=== PATIENT | male | born 1945 | race American Indian/Alaskan Native ===

== ENCOUNTER 2018-12-16 13:07 | Inpatient (IN) | payer MEDICARE, OTHER ==
[2018-12-16] MEDS ORDERED: NACL 0.9% 1000 ML 1,000 ML IV ONE ×2 (13:15→15:37)
[2018-12-16] MEDS ORDERED: ASPIRIN PO ONE (13:15)
--- NOTE | 2018-12-16 13:16 | Emergency Department Report ---
ED Chest Pain HPI - General Stated Complaint: CHEST PAIN Time Seen by Provider: 12/16/18 13:13 Source: patient, EMS Mode of arrival: Stretcher Limitations: No Limitations - History of Present Illness Initial Comments: She is a 73-year-old male that presents emergency room with complaints of chest pain. Patient states his chest pain was a 7 out of 10 and is now resolved since being placed on oxygen. Patient states his chest pain was left chest substernal nonradiating. Patient states the pain is better with rest and worse with exertion. Patient states the chest pain came on with exertion. Patient states he has a past medical history of diabetes, hyponatremia, hypertension, CAD with stent. MD Complaint: chest pain -: Sudden Onset: during exertion Pain Location: substernal, left chest Pain Radiation: none Severity: severe Severity scale (0 -10): 7 Quality: sharp Consistency: now resolved Improves With: rest Worsens With: exertion re: denies: nausea, vomting, diaphoresis, dyspnea, sense of impending doom Other Symptoms: denies: cough, fever, syncope, rash, acid taste in mouth, leg swelling, palpitations, burping Treatments Prior to Arrival: oxygen Aspirin use within the Past 7 Days: (1) Yes - Related Data On Oral Contraceptives: No Home Medications Medication Instructions Recorded Confirmed Last Taken Chlorthalidone [Thalitone] 25 mg PO DAILY 12/16/18 12/16/18 Unknown Insulin Aspart [Novolog] 14 - 16 unit SQ AC 12/16/18 12/16/18 Unknown Insulin Glargine [Lantus] 50 unit SUB-Q QHS 12/16/18 12/16/18 Unknown Losartan [Cozaar] 100 mg PO DAILY 12/16/18 12/16/18 Unknown Metoprolol [Lopressor TAB] 50 mg PO BID 12/16/18 12/16/18 Unknown Metoprolol [Lopressor] 100 mg PO BID 12/16/18 12/16/18 Unknown Multivitamin with Iron [Children's 1 each PO DAILY 12/16/18 12/16/18 Unknown Vitamins with Iron] Oxybutynin Chloride [Ditropan Xl] 20 mg PO DAILY 12/16/18 12/16/18 Unknown amLODIPine [Norvasc] 10 mg PO DAILY 12/16/18 12/16/18 Unknown metFORMIN [Glucophage] 500 mg PO BID 12/16/18 12/16/18 Unknown Allergies Allergy/AdvReac Type Severity Reaction Status Date / Time No Known Allergies Allergy Unverified 12/16/18 13:29 Heart Score - HEART Score History: Highly suspicious EKG: Non-specific Age: > 65 Risk factors: > 3 risk factors or hx of atherosclerotic disease Troponin: < normal limit HEART Score: 7 ED Review of Systems ROS: Stated complaint: CHEST PAIN Other details as noted in HPI Constitutional: denies: chills, fever Eyes: denies: eye pain, eye discharge, vision change ENT: denies: ear pain, throat pain Respiratory: denies: cough, shortness of breath, wheezing Cardiovascular: chest pain. denies: palpitations Endocrine: no symptoms reported Gastrointestinal: denies: abdominal pain, nausea, diarrhea Genitourinary: denies: urgency, dysuria Musculoskeletal: denies: back pain, joint swelling, arthralgia Skin: denies: rash, lesions Neurological: denies: headache, weakness, paresthesias Psychiatric: denies: anxiety, depression Hematological/Lymphatic: denies: easy bleeding, easy bruising ED Past Medical Hx - Past Medical History Previous Medical History?: Yes Hx Hypertension: Yes Hx Heart Attack/AMI: Yes Hx Diabetes: Yes - Surgical History Past Surgical History?: Yes Hx Coronary Stent: Yes - Family History Family history: no significant - Social History Smoking Status: Never Smoker Substance Use Type: None - Medications Home Medications: Home Medications Medication Instructions Recorded Confirmed Last Taken Type Chlorthalidone [Thalitone] 25 mg PO DAILY 12/16/18 12/16/18 Unknown History Insulin Aspart [Novolog] 14 - 16 unit SQ AC 12/16/18 12/16/18 Unknown History Insulin Glargine [Lantus] 50 unit SUB-Q QHS 12/16/18 12/16/18 Unknown History Losartan [Cozaar] 100 mg PO DAILY 12/16/18 12/16/18 Unknown History Metoprolol [Lopressor TAB] 50 mg PO BID 12/16/18 12/16/18 Unknown History Metoprolol [Lopressor] 100 mg PO BID 12/16/18 12/16/18 Unknown History Multivitamin with Iron [Children's 1 each PO DAILY 12/16/18 12/16/18 Unknown History Vitamins with Iron] Oxybutynin Chloride [Ditropan Xl] 20 mg PO DAILY 12/16/18 12/16/18 Unknown History amLODIPine [Norvasc] 10 mg PO DAILY 12/16/18 12/16/18 Unknown History metFORMIN [Glucophage] 500 mg PO BID 12/16/18 12/16/18 Unknown History ED Physical Exam - General Limitations: No Limitations General appearance: alert, in no apparent distress - Head Head exam: Present: atraumatic, normocephalic - Eye Eye exam: Present: normal appearance - ENT ENT exam: Present: mucous membranes moist - Neck Neck exam: Present: normal inspection - Respiratory Respiratory exam: Present: normal lung sounds bilaterally. Absent: respiratory distress - Cardiovascular Cardiovascular Exam: Present: regular rate, normal rhythm. Absent: systolic murmur, diastolic murmur, rubs, gallop - GI/Abdominal GI/Abdominal exam: Present: soft, normal bowel sounds. Absent: distended, tenderness, guarding - Rectal Rectal exam: Present: deferred - Extremities Exam Extremities exam: Present: normal inspection - Back Exam Back exam: Present: normal inspection - Neurological Exam Neurological exam: Present: alert, oriented X3 - Psychiatric Psychiatric exam: Present: normal affect, normal mood - Skin Skin exam: Present: warm, dry, intact, normal color. Absent: rash ED Course Vital Signs 12/16/18 12/16/18 12/16/18 13:23 13:46 13:58 Temperature 99.2 F Pulse Rate 88 74 Respiratory 18 18 23 Rate Blood Pressure 129/63 128/65 Blood Pressure 129/63 [Left] O2 Sat by Pulse 100 100 97 Oximetry 12/16/18 12/16/18 12/16/18 14:00 14:16 14:30 Temperature Pulse Rate 71 70 68 Respiratory 22 22 12 Rate Blood Pressure 128/65 119/64 121/68 Blood Pressure [Left] O2 Sat by Pulse 98 98 96 Oximetry 12/16/18 12/16/18 12/16/18 14:46 15:00 15:16 Temperature Pulse Rate 67 64 64 Respiratory 22 20 17 Rate Blood Pressure 119/68 121/70 125/71 Blood Pressure [Left] O2 Sat by Pulse 91 98 97 Oximetry 12/16/18 12/16/18 12/16/18 15:30 15:46 17:05 Temperature Pulse Rate 66 63 73 Respiratory 14 18 23 Rate Blood Pressure 125/71 133/70 118/76 Blood Pressure [Left] O2 Sat by Pulse 98 97 96 Oximetry 12/16/18 12/16/18 12/16/18 17:10 17:20 17:30 Temperature Pulse Rate 73 72 73 Respiratory 22 25 H 25 H Rate Blood Pressure 118/76 130/79 130/79 Blood Pressure [Left] O2 Sat by Pulse 98 97 99 Oximetry 12/16/18 12/16/18 12/16/18 17:40 17:58 18:00 Temperature Pulse Rate 72 71 72 Respiratory 21 19 22 Rate Blood Pressure 146/75 130/72 150/74 Blood Pressure [Left] O2 Sat by Pulse 97 97 94 Oximetry - Reevaluation(s) Reevaluation #1: I discussed all results with patient. I discussed plan of care outpatient. Patient agrees with plan of care and admission. Patient will be admitted to the hospitalist service. 12/16/18 15:13 - Consultations Consultation #1: Hospitalist consult for admission. Hospitalist to admit patient. Bridge orders placed. 12/16/18 15:45 GADIEL score - Gadiel Score Age > 65: (1) Yes Aspirin use within the Past 7 Days: (1) Yes 3 or more CAD Risk Factors: (1) Yes 2 or more Angina events in past 24 hrs: (0) No Known CAD with more than 50% Stenosis: (0) No Elevated Cardiac Markers: (0) No ST Deviation Greater than 0.5mm: (0) No GADIEL Score: 3 ED Medical Decision Making - Lab Data Result diagrams: 12/16/18 13:12/18/18 04:19 - EKG Data -: EKG Interpreted by Ne EKG shows normal: sinus rhythm, axis, intervals, QRS complexes, ST-T waves Rate: normal - Radiology Data Radiology results: report reviewed, image reviewed CTA CHEST WITH IV CONTRAST INDICATION: Chest pain, hypoxia. TECHNIQUE: Axial CT images were obtained through the chest after injection of 60 mL Omnipaque 350 IV contrast. 3 plane MIP reconstructions were produced. All CT scans at this location are performed using CT dose reduction for ALARA by means of automated exposure control. COMPARISON: One view of the chest from earlier today. FINDINGS: PULMONARY ARTERIES: The pulmonary arteries are well-opacified without suspicious filling defects concerning for thromboemboli. AORTA AND ARTERIES: The aorta and great vessels are patent and normal in caliber without significant atherosclerosis. There is severe generalized coronary atherosclerosis. MEDIASTINUM: No significant abnormality of the thyroid gland. The trachea and main bronchi are patent and normal in caliber. No mass or lymphadenopathy is seen. The heart is mildly enlarged without a pericardial effusion. LUNGS: There is a consolidation along the right upper and lower lobes and minimally along the right middle lobe are consistent with pneumonia. The left lung is clear. No pneumothorax or pleural effusion is seen. ADDITIONAL FINDINGS: None. UPPER ABDOMEN: No acute findings. BONES: No acute abnormality. IMPRESSION: 1. No CT evidence for pulmonary embolism. 2. Multifocal right pneumonia. 3. Additional findings as above. - Medical Decision Making Patient is a 73-year-old male that presents emergency room with complaints of chest pain hypoxic. Patient found to have right-sided pneumonia. Patient's EKG negative for acute findings but shows chronic changes. Patient has a history of CAD. Patient admitted to the hospital service. Patient given antibiotics. - Differential Diagnosis chest pain. ACS. Pneumonia. Critical Care Time: Yes Critical care attestation.: If time is entered above; I have spent that time in minutes in the direct care of this critically ill patient, excluding procedure time. Critical Care Time: 45 minutes ED Disposition Clinical Impression: Hypoxia, Renal insufficiency Chest pain Qualifiers: Chest pain type: unspecified Qualified Code(s): R07.9 - Chest pain, unspecified Pneumonia Qualifiers: Pneumonia type: due to unspecified organism Laterality: unspecified laterality Lung location: unspecified part of lung Qualified Code(s): J18.9 - Pneumonia, unspecified organism Disposition: OP ADMIT IP TO THIS HOSP Is pt being admited?: Yes Does the pt Need Aspirin: No Condition: Critical Time of Disposition: 15:21
[2018-12-16 13:51] LABS: Hematocrit 49.7 % (35.5-45.6); Hemoglobin 16.1 gm/dl (11.8-15.2); Mean Corpuscular HGB Conc 32 % (32-34); Mean Corpuscular Volume 89 fl (84-94); Platelet Count 202 K/mm3 (140-440); Red Blood Count 5.61 M/mm3 (3.65-5.03); Red Cell Distribution Width 14.5 % (13.2-15.2)
[2018-12-16 13:59] LABS: Albumin 3.8 g/dL (3.9-5); Calcium 10.6 mg/dL (8.4-10.2)
[2018-12-16 14:36] LABS: Basophils % (Manual) 0 % (0.0-1.8); Eosinophils % (Manual) 0 % (0.0-4.3); Monocytes % (Manual) 0 % (0.0-7.3); Total Cells Counted 100
[2018-12-16 14:37] LABS: Anisocytosis Few; Platelet Estimate Consistent w Auto
--- NOTE | 2018-12-16 15:06 | XRay Report ---
CHEST 1 VIEW INDICATION: Chest Pain. COMPARISON: None FINDINGS: Support devices: None. Heart: Borderline heart size Lungs/Pleura: Patchy infiltrate is identified in the right upper lobe and right lower lobe concerning for pneumonia. The left lung is clear. No large pleural effusion or pneumothorax. Additional findings: None. IMPRESSION: Right lung pneumonia. Borderline cardiomegaly. Signer Name: Wilfred Rossi Jr, MD Signed: 12/16/2018 3:02 PM Workstation Name: [id number]
[2018-12-16] MEDS ORDERED: MAXIPIME/NS 2 GM/100 ML 2 GM/100 ML BAG IV ONE (15:22)
--- NOTE | 2018-12-16 17:00 | Cat Scan Report ---
CTA CHEST WITH IV CONTRAST INDICATION: Chest pain, hypoxia. TECHNIQUE: Axial CT images were obtained through the chest after injection of 60 mL Omnipaque 350 IV contrast. 3 plane MIP reconstructions were produced. All CT scans at this location are performed using CT dose r eduction for ALARA by means of automated exposure control. COMPARISON: One view of the chest from earlier today. FINDINGS: PULMONARY ARTERIES: The pulmonary arteries are well-opacified without suspicious filling defects conc erning for thromboemboli. AORTA AND ARTERIES: The aorta and great vessels are patent and normal in caliber without significant atherosclerosis. There is severe generalized coronary atherosclerosis. MEDIASTINUM: No significant abnormality of the thyroid gland. The trachea and main bronchi are patent and normal in caliber. No mass or lymphadenopathy is seen. The heart is mildly enlarged without a pe ricardial effusion. LUNGS: There is a consolidation along the right upper and lower lobes and minimally along the right m iddle lobe are consistent with pneumonia. The left lung is clear. No pneumothorax or pleural effusion is seen. ADDITIONAL FINDINGS: None. UPPER ABDOMEN: No acute findings. BONES: No acute abnormality. IMPRESSION: 1. No CT evidence for pulmonary embolism. 2. Multifocal right pneumonia. 3. Additional findings as above. Signer Name: Den Presotn MD Signed: 12/16/2018 4:55 PM Workstation Name: [id number]
--- NOTE | 2018-12-16 18:10 | History and Physical Report ---
History of Present Illness Date of examination: 12/16/18 Date of admission: 12/16/18 15:35 Chief complaint: Chest pain since AM History of present illness: 73-year-old male with IDDM HTN and OAB presents to emergency room with complaints of chest pain. Patient states his chest pain was a 7 out of 10 and is now resolved since being placed on oxygen. Patient states his chest pain was left chest substernal and nonradiating. Patient states the pain is better with rest and worse with exertion. Patient states the chest pain came on with exertion. Patient states he has a past medical history of diabetes, hypertension and CAD with stent. Past Medical History Hypertension: Yes Heart Attack/AMI: Yes Diabetes: Yes Surgical History Past Surgical History?: Yes Hx Coronary Stent: Yes Family History Family history: no significant Social History Smoking Status: Never Smoker Substance Use Type: None Review of Systems ROS: Stated complaint: CHEST PAIN Other details as noted in HPI Constitutional: denies: chills, fever Eyes: denies: eye pain, eye discharge, vision change ENT: denies: ear pain, throat pain Respiratory: denies: cough, shortness of breath, wheezing Cardiovascular: chest pain. denies: palpitations Endocrine: no symptoms reported Gastrointestinal: denies: abdominal pain, nausea, diarrhea Genitourinary: denies: urgency, dysuria Musculoskeletal: denies: back pain, joint swelling, arthralgia Skin: denies: rash, lesions Neurological: denies: headache, weakness, paresthesias Psychiatric: denies: anxiety, depression Hematological/Lymphatic: denies: easy bleeding, easy bruising - Medications Home Medications: Home Medications Medication Instructions Recorded Confirmed Last Taken Type Chlorthalidone [Thalitone] 25 mg PO DAILY 12/16/18 12/16/18 Unknown History Insulin Aspart [Novolog] 14 - 16 unit SQ AC 12/16/18 12/16/18 Unknown History Insulin Glargine [Lantus] 50 unit SUB-Q QHS 12/16/18 12/16/18 Unknown History Losartan [Cozaar] 100 mg PO DAILY 12/16/18 12/16/18 Unknown History Metoprolol [Lopressor TAB] 50 mg PO BID 12/16/18 12/16/18 Unknown History Metoprolol [Lopressor] 100 mg PO BID 12/16/18 12/16/18 Unknown History Multivitamin with Iron [Children's 1 each PO DAILY 12/16/18 12/16/18 Unknown History Vitamins with Iron] Oxybutynin Chloride [Ditropan Xl] 20 mg PO DAILY 12/16/18 12/16/18 Unknown History amLODIPine [Norvasc] 10 mg PO DAILY 12/16/18 12/16/18 Unknown History metFORMIN [Glucophage] 500 mg PO BID 12/16/18 12/16/18 Unknown History Medications and Allergies Allergies Allergy/AdvReac Type Severity Reaction Status Date / Time No Known Allergies Allergy Unverified 12/16/18 13:29 Home Medications Medication Instructions Recorded Confirmed Last Taken Type Chlorthalidone [Thalitone] 25 mg PO DAILY 12/16/18 12/16/18 Unknown History Insulin Aspart [Novolog] 14 - 16 unit SQ AC 12/16/18 12/16/18 Unknown History Insulin Glargine [Lantus] 50 unit SUB-Q QHS 12/16/18 12/16/18 Unknown History Losartan [Cozaar] 100 mg PO DAILY 12/16/18 12/16/18 Unknown History Metoprolol [Lopressor TAB] 50 mg PO BID 12/16/18 12/16/18 Unknown History Metoprolol [Lopressor] 100 mg PO BID 12/16/18 12/16/18 Unknown History Multivitamin with Iron [Children's 1 each PO DAILY 12/16/18 12/16/18 Unknown History Vitamins with Iron] Oxybutynin Chloride [Ditropan Xl] 20 mg PO DAILY 12/16/18 12/16/18 Unknown History amLODIPine [Norvasc] 10 mg PO DAILY 12/16/18 12/16/18 Unknown History metFORMIN [Glucophage] 500 mg PO BID 12/16/18 12/16/18 Unknown History Active Meds: Active Medications Sodium Chloride (Nacl 0.9% 1000 Ml) 1,000 mls @ 250 mls/hr IV ONCE ONE Stop: 12/16/18 19:36 Last Admin: 12/16/18 16:28 Dose: 250 mls/hr Documented by: Exam - Constitutional Vitals: Temp Pulse Resp BP Pulse Ox 99.2 F 88 18 129/63 100 12/16/18 13:23 12/16/18 13:23 12/16/18 13:46 12/16/18 13:23 12/16/18 13:46 General appearance: Present: no acute distress, well-nourished - EENT Eyes: Present: PERRL ENT: hearing intact, clear oral mucosa - Neck Neck: Present: supple, normal ROM - Respiratory Respiratory effort: normal Respiratory: bilateral: CTA - Cardiovascular Heart rate: 78 Rhythm: regular Heart Sounds: Present: S1 & S2. Absent: rub, click - Extremities Extremities: no ischemia, pulses intact, pulses symmetrical, No edema Peripheral Pulses: within normal limits - Abdominal General gastrointestinal: Present: soft, non-tender, non-distended, normal bowel sounds Male genitourinary: Present: normal - Rectal Rectal Exam: deferred - Integumentary Integumentary: Present: clear, warm, dry - Musculoskeletal Musculoskeletal: gait normal, strength equal bilaterally - Psychiatric Psychiatric: appropriate mood/affect, intact judgment & insight - Neurologic Neurologic: CNII-XII intact, moves all extremities - Allied Health Allied health notes reviewed: nursing, case management Results - Labs CBC & Chem 7: 12/16/18 13:19 12/16/18 13:19 Labs: Laboratory Last Values WBC 16.0 K/mm3 (4.5-11.0) H 12/16/18 13:19 RBC 5.61 M/mm3 (3.65-5.03) H 12/16/18 13:19 Hgb 16.1 gm/dl (11.8-15.2) H 12/16/18 13:19 Hct 49.7 % (35.5-45.6) H 12/16/18 13:19 MCV 89 fl (84-94) 12/16/18 13:19 MCH 29 pg (28-32) 12/16/18 13:19 MCHC 32 % (32-34) 12/16/18 13:19 RDW 14.5 % (13.2-15.2) 12/16/18 13:19 Plt Count 202 K/mm3 (140-440) 12/16/18 13:19 Add Manual Diff Complete 12/16/18 13:19 Total Counted 100 12/16/18 13:19 Seg Neutrophils % Shoe Repair Cobbler 12/16/18 13:19 Seg Neuts % (Manual) 98.0 % (40.0-70.0) H 12/16/18 13:19 0 % 09/13/19 13:19 2.0 % (13.4-35.0) L 12/16/18 13:19 Reactive Lymphs % (Man) 0 % 12/16/18 13:19 0 % (0.0-7.3) 12/16/18 13:19 0 % (0.0-4.3) 12/16/18 13:19 0 % (0.0-1.8) 12/16/18 13:19 0 % 12/16/18 13:19 0 % 12/16/18 13:19 0 % 12/16/18 13:19 0 % 12/16/18 13:19 Nucleated RBC % Not Reportable 12/16/18 13:19 Seg Neutrophils # Man 15.7 K/mm3 (1.8-7.7) H 12/16/18 13:19 Band Neutrophils # 0.0 K/mm3 12/16/18 13:19 0.3 K/mm3 (1.2-5.4) L 12/16/18 13:19 Abs React Lymphs (Man) 0.0 K/mm3 12/16/18 13:19 0.0 K/mm3 (0.0-0.8) 12/16/18 13:19 0.0 K/mm3 (0.0-0.4) 12/16/18 13:19 0.0 K/mm3 (0.0-0.1) 12/16/18 13:19 0.0 K/mm3 12/16/18 13:19 0.0 K/mm3 12/16/18 13:19 0.0 K/mm3 12/16/18 13:19 Blast Cells # 0.0 K/mm3 12/16/18 13:19 WBC Morphology Not Reportable 12/16/18 13:19 Hypersegmented Neuts Not Reportable 12/16/18 13:19 Hyposegmented Neuts Not Reportable 12/16/18 13:19 Hypogranular Neuts Not Reportable 12/16/18 13:19 Not Reportable 12/16/18 13:19 Not Reportable 12/16/18 13:19 Not Reportable 12/16/18 13:19 Not Reportable 12/16/18 13:19 Not Reportable 12/16/18 13:19 Not Reportable 12/16/18 13:19 Consistent w auto 12/16/18 13:19 Not Reportable 12/16/18 13:19 Plt Clumps, EDTA Not Reportable 12/16/18 13:19 Not Reportable 12/16/18 13:19 Not Reportable 12/16/18 13:19 Not Reportable 12/16/18 13:19 Plt Morphology Comment Not Reportable 12/16/18 13:19 RBC Morphology Not Reportable 12/16/18 13:19 Dimorphic RBCs Not Reportable 12/16/18 13:19 Not Reportable 12/16/18 13:19 Not Reportable 12/16/18 13:19 Not Reportable 12/16/18 13:19 Few 12/16/18 13:19 Not Reportable 12/16/18 13:19 Not Reportable 12/16/18 13:19 Not Reportable 12/16/18 13:19 Not Reportable 12/16/18 13:19 Not Reportable 12/16/18 13:19 Not Reportable 12/16/18 13:19 Not Reportable 12/16/18 13:19 Not Reportable 12/16/18 13:19 Not Reportable 12/16/18 13:19 Not Reportable 12/16/18 13:19 Not Reportable 12/16/18 13:19 Not Reportable 12/16/18 13:19 Not Reportable 12/16/18 13:19 Not Reportable 12/16/18 13:19 Not Reportable 12/16/18 13:19 Acanthocytes (Spur) Not Reportable 12/16/18 13:19 Rouleaux Not Reportable 12/16/18 13:19 Not Reportable 12/16/18 13:19 Not Reportable 12/16/18 13:19 Not Reportable 12/16/18 13:19 Not Reportable 12/16/18 13:19 Hem Pathologist Commnt No 12/16/18 13:19 Sodium 138 mmol/L (137-145) 12/16/18 13:19 Potassium 3.7 mmol/L (3.6-5.0) 12/16/18 13:19 Chloride 98.9 mmol/L (98-107) 12/16/18 13:19 Carbon Dioxide 24 mmol/L (22-30) 12/16/18 13:19 19 mmol/L 12/16/18 13:19 BUN 24 mg/dL (9-20) H 12/16/18 13:19 1.6 mg/dL (0.8-1.5) H 12/16/18 13:19 Estimated GFR 51 ml/min 12/16/18 13:19 15 % 12/16/18 13:19 Glucose 287 mg/dL (75-100) H 12/16/18 13:19 Calcium 10.6 mg/dL (8.4-10.2) H 12/16/18 13:19 0.50 mg/dL (0.1-1.2) 12/16/18 13:19 AST 16 units/L (5-40) 12/16/18 13: ALT 13 units/L (7-56) 12/16/18 13:19 89 units/L (35-129) 12/16/18 13: 0.011 ng/mL (0.00-0.029) 12/16/18 13: 6.7 g/dL (6.3-8.2) 12/16/18 13:19 3.8 g/dL (3.9-5) L 12/16/18 13:19 1.3 % 12/16/18 13:19 Short CBC 12/16/18 Range/Units 13:19 WBC 16.0 H (4.5-11.0) K/mm3 Hgb 16.1 H (11.8-15.2) gm/dl Hct 49.7 H (35.5-45.6) % Plt Count 202 (140-440) K/mm3 BMP 12/16/18 13:19 Sodium 138 Potassium 3.7 Chloride 98.9 Carbon Dioxide 24 BUN 24 H Creatinine 1.6 H Glucose 287 H Calcium 10.6 H Cardiac Enzymes 12/16/18 Range/Units 13: Troponin T 0.011 (0.00-0.029) ng/mL Liver Function 12/16/18 Range/Units 13:19 Total Bilirubin 0.50 (0.1-1.2) mg/dL AST 16 (5-40) units/L ALT 13 (7-56) units/L Alkaline Phosphatase 89 (35-129) units/L Albumin 3.8 L (3.9-5) g/dL Urine 12/16/18 Range/Units Unknown Urine Color Yellow (Yellow) Urine pH 6.0 (5.0-7.0) Ur Specific [place] 1.041 H (1.003-1.030) Urine Protein >500 (Negative) mg/dL Urine Glucose (UA) Neg (Negative) mg/dL - Imaging and Cardiology EKG: report reviewed (NSR 85/min) Imaging and Cardiology: CXR Lungs/Pleura: Patchy infiltrate is identified in the right upper lobe and right lower lobe concerning for pneumonia. The left lung is clear. No large pleural effusion or pneumothorax. Additional findings: None. IMPRESSION: Right lung pneumonia. Borderline cardiomegaly. Chest CTA IMPRESSION: 1. No CT evidence for pulmonary embolism. 2. Multifocal right pneumonia. 3. Additional findings as above. Assessment and Plan Advance Directives: Yes (Full code) VTE prophylaxis?: Chemical Plan of care discussed with patient/family: Yes - Patient Problems (1) CAP (community acquired pneumonia) Current Visit: Yes Status: Acute Qualifiers: Lung location: lower lobe of lung Qualified Code(s): J18.1 - Lobar pneumonia, unspecified organism Plan to address problem: IV Abx and IV fluids for now (2) Chest pain Current Visit: Yes Status: Acute Qualifiers: Chest pain type: unspecified Qualified Code(s): R07.9 - Chest pain, unspecified Plan to address problem: Serial Troponins and Lexiscan in AM (3) SHAMIR (acute kidney injury) Current Visit: Yes Status: Acute Plan to address problem: Probably sec to Chlorthalidone which was stopped ATN (4) IDDM (insulin dependent diabetes mellitus) Current Visit: Yes Status: Chronic Plan to address problem: COnt home insulin and coverage Check A1c (5) HTN (hypertension) Current Visit: Yes Status: Chronic Qualifiers: Hypertension type: essential hypertension Qualified Code(s): I10 - Essential (primary) hypertension Plan to address problem: Cont antihypertensives (6) OAB (overactive bladder) Current Visit: Yes Status: Chronic Plan to address problem: COnt ditropan (7) DVT prophylaxis Current Visit: Yes Status: Acute Plan to address problem: On Lovenox and GI prophylaxis
[2018-12-16] MEDS ORDERED: MULTIVITAMIN WITH IRON PO SCH (18:30)
[2018-12-16] MEDS ORDERED: NON-FORMULARY (Losartan [Cozaar] 100 MG) PO SCH (18:30)
[2018-12-16] MEDS ORDERED: OXYBUTYNIN CHLORIDE 20 MG PO SCH (18:30)
[2018-12-16] MEDS ORDERED: VANCOMYCIN PHARMACY TO DOSE IV SCH (19:00)
[2018-12-16] MEDS ORDERED: THALITONE PO SCH (19:00)
[2018-12-16 19:45] LABS: Bilirubin,Urine NEG (Negative); Blood,Urine NEG (Negative); Color,Urine Yellow (Yellow); Mucus,Urine FEW /HPF; Urobilinogen,Urine < 2.0 mg/dL (<2.0)
[2018-12-16 19:47] LABS: Protein,Urine >500 mg/dL (Negative)
[2018-12-16 19:52] LABS: Amphetamine Screen,Urine PRESUMPTIVE NEGATIVE; Benzodiazepines Screen,Urine PRESUMPTIVE NEGATIVE; Cannabinoid Screen,Urine PRESUMPTIVE NEGATIVE; Cocaine Screen,Urine PRESUMPTIVE NEGATIVE; Methadone Screen,Urine PRESUMPTIVE NEGATIVE; Opiate Screen,Urine PRESUMPTIVE NEGATIVE
[2018-12-16] MEDS ORDERED: VANCOMYCIN 2,000 MG in NACL 0.9% 500 ML 500 ML IV ONE (20:00)
[2018-12-16] MEDS ORDERED: LOPRESSOR PO SCH (22:00)
[2018-12-16] MEDS: GLUCOPHAGE PO SCH (22:01)
[2018-12-16] MEDS: ROCEPHIN/NS 2 GM/100 ML 2 GM/100 ML BAG IV SCH (22:01)
[2018-12-16] MEDS: NORVASC PO SCH (22:02)
[2018-12-16] MEDS: LOPRESSOR PO SCH (22:03)
[2018-12-16] MEDS: COZAAR PO SCH (22:03)
[2018-12-16] MEDS: HumaLOG SUB-Q SCH ×2 (22:05→22:22)
[2018-12-16] MEDS: LANTUS SUB-Q SCH (22:07)
[2018-12-16] MEDS: ZITHROMAX 500 MG in NACL 0.9% 250ML 250 ML IV SCH (23:32)
--- NOTE | 2018-12-17 05:58 | Event Note ---
Date: 12/17/18 Notified by nurse that patient had a rhythm change on telemetry strip from sinus rhythm to first-degree AV block and second degree AV block. Order stat 12-lead EKG, consulted cardiology. Will also order cardiac enzyme.
[2018-12-17] MEDS ORDERED: INSULIN ASPART 14 UNIT SQ SCH (07:30)
[2018-12-17] MEDS ORDERED: LEXISCAN IV ONE ×2 (08:08→08:16)
--- NOTE | 2018-12-17 10:12 | Progress Note ---
Assessment and Plan Assessment and plan: CXR:Right lung pneumonia. Borderline cardiomegaly. Chest CTA: 1. No CT evidence for pulmonary embolism. 2. Multifocal right pneumonia. 3. Additional findings as above. -- CAP (community acquired pneumonia) Current Visit: Yes Status: Acute IV Abx Rocephin and Zithromax and IV fluids , follow cultures Oxygen titrate O2 sats to more than 90% --Chest pain/angina Current Visit: Yes Status: Acute s/p stress test, pending report Cardiology evaluation noted and appreciated -- SHAMIR (acute kidney injury) Current Visit: Yes Status: Acute Probably secondary to vasomotor nephropathy vs Chlorthalidone, medication stopped Renal function improved, avoid nephrotoxins -- IDDM (insulin dependent diabetes mellitus) Current Visit: Yes Status: Chronic. Accu-Cheks sliding scale coverage and ADA diet Cont home insulin and coverage Check A1c -- HTN (hypertension) Current Visit: Yes Status: Chronic Cont antihypertensives, when necessary medications --OAB (overactive bladder) Current Visit: Yes Status: Chronic COnt ditropan -- DVT prophylaxis Current Visit: Yes Status: Acute On Lovenox and GI prophylaxis Disposition; follow stress test, continue current antibiotics Possible discharge in 1-2 days if stable History Interval history: Patient seen and examined medical records reviewed Admitted with chest pain and hospital-acquired pneumonia Patient had stress test this morning, pending report Complains of some shortness of breath chest congestion and cough Alert awake oriented, Vital signs noted Hospitalist Physical - Constitutional Vitals: Temp Pulse Resp BP Pulse Ox 98.0 F 69 20 178/85 97 12/17/18 07:11 12/17/18 05:23 12/17/18 07:11 12/17/18 07:11 12/17/18 05:23 General appearance: Present: mild distress, well-nourished - EENT Eyes: Present: PERRL, EOM intact - Neck Neck: Present: supple, normal ROM - Respiratory Respiratory effort: normal Respiratory: bilateral: diminished, rhonchi, negative: rales, wheezing - Cardiovascular Rhythm: regular Heart Sounds: Present: S1 & S2 - Extremities Extremities: no ischemia, No edema - Abdominal General gastrointestinal: soft, non-tender, non-distended, normal bowel sounds - Integumentary Integumentary: Present: clear, warm - Psychiatric Psychiatric: appropriate mood/affect, cooperative - Neurologic Neurologic: CNII-XII intact, moves all extremities Results - Labs CBC & Chem 7: 12/16/18 13:19 12/17/18 09:55 Labs: Laboratory Last Values WBC 16.0 K/mm3 (4.5-11.0) H 12/16/18 13:19 RBC 5.61 M/mm3 (3.65-5.03) H 12/16/18 13:19 Hgb 16.1 gm/dl (11.8-15.2) H 12/16/18 13:19 Hct 49.7 % (35.5-45.6) H 12/16/18 13:19 MCV 89 fl (84-94) 12/16/18 13:19 MCH 29 pg (28-32) 12/16/18 13:19 MCHC 32 % (32-34) 12/16/18 13:19 RDW 14.5 % (13.2-15.2) 12/16/18 13:19 Plt Count 202 K/mm3 (140-440) 12/16/18 13:19 Add Manual Diff Complete 12/16/18 13:19 Total Counted 100 12/16/18 13:19 Seg Neutrophils % Surgical Technologist 12/16/18 13:19 Seg Neuts % (Manual) 98.0 % (40.0-70.0) H 12/16/18 13:19 0 % 12/16/18 13:19 2.0 % (13.4-35.0) L 12/16/18 13:19 Reactive Lymphs % (Man) 0 % 12/16/18 13:19 0 % (0.0-7.3) 12/16/18 13:19 0 % (0.0-4.3) 12/16/18 13:19 0 % (0.0-1.8) 12/16/18 13:19 0 % 12/16/18 13:19 0 % 12/16/18 13:19 0 % 12/16/18 13:19 0 % 12/16/18 13:19 Nucleated RBC % Not Reportable 12/16/18 13:19 Seg Neutrophils # Man 15.7 K/mm3 (1.8-7.7) H 12/16/18 13:19 Band Neutrophils # 0.0 K/mm3 12/16/18 13:19 0.3 K/mm3 (1.2-5.4) L 12/16/18 13:19 Abs React Lymphs (Man) 0.0 K/mm3 12/16/18 13:19 0.0 K/mm3 (0.0-0.8) 12/16/18 13:19 0.0 K/mm3 (0.0-0.4) 12/16/18 13:19 0.0 K/mm3 (0.0-0.1) 12/16/18 13:19 0.0 K/mm3 12/16/18 13:19 0.0 K/mm3 12/16/18 13:19 0.0 K/mm3 12/16/18 13:19 Blast Cells # 0.0 K/mm3 12/16/18 13:19 WBC Morphology Not Reportable 12/16/18 13:19 Hypersegmented Neuts Not Reportable 12/16/18 13:19 Hyposegmented Neuts Not Reportable 12/16/18 13:19 Hypogranular Neuts Not Reportable 12/16/18 13:19 Not Reportable 12/16/18 13:19 Not Reportable 12/16/18 13:19 Not Reportable 12/16/18 13:19 Not Reportable 12/16/18 13:19 Not Reportable 12/16/18 13:19 Not Reportable 12/16/18 13:19 Consistent w auto 12/16/18 13:19 Not Reportable 12/16/18 13:19 Plt Clumps, EDTA Not Reportable 12/16/18 13:19 Not Reportable 12/16/18 13:19 Not Reportable 12/16/18 13:19 Not Reportable 12/16/18 13:19 Plt Morphology Comment Not Reportable 12/16/18 13:19 RBC Morphology Not Reportable 12/16/18 13:19 Dimorphic RBCs Not Reportable 12/16/18 13:19 Not Reportable 12/16/18 13:19 Not Reportable 12/16/18 13:19 Not Reportable 12/16/18 13:19 Few 12/16/18 13:19 Not Reportable 12/16/18 13:19 Not Reportable 12/16/18 13:19 Not Reportable 12/16/18 13:19 Not Reportable 12/16/18 13:19 Not Reportable 12/16/18 13:19 Not Reportable 12/16/18 13:19 Not Reportable 12/16/18 13:19 Not Reportable 12/16/18 13:19 Not Reportable 12/16/18 13:19 Not Reportable 12/16/18 13:19 Not Reportable 12/16/18 13:19 Not Reportable 12/16/18 13:19 Not Reportable 12/16/18 13:19 Not Reportable 12/16/18 13:19 Not Reportable 12/16/18 13:19 Acanthocytes (Spur) Not Reportable 12/16/18 13:19 Rouleaux Not Reportable 12/16/18 13:19 Not Reportable 12/16/18 13:19 Not Reportable 12/16/18 13:19 Not Reportable 12/16/18 13:19 Not Reportable 12/16/18 13:19 Hem Pathologist Commnt No 12/16/18 13:19 Sodium 138 mmol/L (137-145) 12/16/18 13:19 Potassium 3.7 mmol/L (3.6-5.0) 12/16/18 13:19 Chloride 98.9 mmol/L (98-107) 12/16/18 13:19 Carbon Dioxide 24 mmol/L (22-30) 12/16/18 13:19 19 mmol/L 12/16/18 13:19 BUN 24 mg/dL (9-20) H 12/16/18 13:19 1.6 mg/dL (0.8-1.5) H 12/16/18 13:19 Estimated GFR 51 ml/min 12/16/18 13:19 15 % 12/16/18 13:19 Glucose 287 mg/dL (75-100) H 12/16/18 13:19 POC Glucose 139 (70-105) H 12/17/18 07:37 Calcium 10.6 mg/dL (8.4-10.2) H 12/16/18 13:19 0.50 mg/dL (0.1-1.2) 12/16/18 13:19 AST 16 units/L (5-40) 12/16/18 13:19 ALT 13 units/L (7-56) 12/16/18 13:19 89 units/L (35-129) 12/16/18 13:19 0.010 ng/mL (0.00-0.029) 12/17/18 06:37 6.7 g/dL (6.3-8.2) 12/16/18 13:19 3.8 g/dL (3.9-5) L 12/16/18 13: 1.3 % 12/16/18 13: Yellow (Yellow) 12/16/18 Unknown Clear (Clear) 12/16/18 Unknown 6.0 (5.0-7.0) 12/16/18 Unknown Ur Specific [place] 1.041 (1.003-1.030) H 12/16/18 Unknown >500 mg/dL (Negative) 12/16/18 Unknown Neg mg/dL (Negative) 12/16/18 Unknown Neg mg/dL (Negative) 12/16/18 Unknown Neg (Negative) 12/16/18 Unknown Neg (Negative) 12/16/18 Unknown Neg (Negative) 12/16/18 Unknown < 2.0 mg/dL (<2.0) 12/16/18 Unknown Ur Leukocyte Esterase Neg (Negative) 12/16/18 Unknown 2.0 /HPF (0.0-6.0) 12/16/18 Unknown 3.0 /HPF (0.0-6.0) 12/16/18 Unknown U Epithel Cells (Auto) 1.0 /HPF (0-13.0) 12/16/18 Unknown Few /HPF 12/16/18 Unknown Presumptive negative 12/16/18 Unknown Presumptive negative 12/16/18 Unknown Ur Barbiturates Screen Presumptive negative 12/16/18 Unknown Ur Phencyclidine Scrn Presumptive negative 12/16/18 Unknown Ur Amphetamines Screen Presumptive negative 12/16/18 Unknown U Benzodiazepines Scrn Presumptive negative 12/16/18 Unknown Presumptive negative 12/16/18 Unknown U Marijuana (THC) Screen Presumptive negative 12/16/18 Unknown Disclamer 12/16/18 Unknown Active Medications - Current Medications Current Medications: Generic Name Dose Route Start Last Admin Trade Name Freq PRN Reason Stop Dose Admin Amlodipine Besylate 10 mg 12/16/18 19:00 12/16/18 22:02 Norvasc PO Not Given DAILY CAROL Ceftriaxone Sodium 2 gm in 100 mls @ 200 mls/hr 12/16/18 19:00 12/16/18 22:01 Rocephin/Ns 2 Gm/100 Ml IV 200 mls/hr Q24HR CAROL Administration Protocol Azithromycin 500 mg/ Sodium 250 mls @ 250 mls/hr 12/16/18 19:00 12/16/18 23:32 Chloride IV 250 mls/hr Q24HR CAROL Administration Protocol Vancomycin HCl 1,500 mg/ 530 mls @ 333.333 mls/hr 12/17/18 20:00 Sodium Chloride IV Q24H [facility] Insulin Glargine 50 units 12/16/18 22:00 12/16/18 22:07 Lantus SUB-Q 50 units QHS CAROL Administration Insulin Human Lispro 0 unit 12/16/18 22:00 12/16/18 22:22 [facility] Protocol Insulin Human Lispro 14 unit 12/17/18 07:30 Humalog SUB-Q [facility] Losartan Potassium 100 mg 12/16/18 19:30 12/16/18 22:03 Cozaar PO Not Given DAILY [facility] Metformin HCl 500 mg 12/16/18 22:00 12/16/18 22:01 Glucophage PO 500 mg BID CAROL Administration Metoprolol Tartrate 100 mg 12/16/18 22:00 12/16/18 22:03 Lopressor PO 100 mg BID [facility] Administration Multivitamins/Minerals 1 each 12/17/18 10:00 Theragran-M Tab PO QDAY [facility] Oxybutynin Chloride 20 mg 12/17/18 10:00 Ditropan Xl PO QDAY [facility]
[2018-12-17] MEDS: NORVASC PO SCH (10:25)
[2018-12-17] MEDS: COZAAR PO SCH (10:26)
[2018-12-17] MEDS: LOPRESSOR PO SCH (10:27)
[2018-12-17] MEDS: GLUCOPHAGE PO SCH ×2 (10:27→21:31)
[2018-12-17] MEDS: THERAGRAN-M Tab PO SCH (10:27)
[2018-12-17] MEDS: DITROPAN XL PO SCH (10:31)
[2018-12-17] MEDS: HumaLOG SUB-Q SCH ×7 (10:32→21:32)
[2018-12-17] MEDS: ZITHROMAX 500 MG in NACL 0.9% 250ML 250 ML IV SCH (10:39)
[2018-12-17] MEDS: ROCEPHIN/NS 2 GM/100 ML 2 GM/100 ML BAG IV SCH (10:40)
[2018-12-17 10:45] LABS: BUN/Creatinine Ratio 18; Blood Urea Nitrogen 23 mg/dL (9-20); Calcium 10.7 mg/dL (8.4-10.2); Hemolysis Index 6
[2018-12-17 10:49] LABS: Chol/HDL Ratio 2.1 %
--- NOTE | 2018-12-17 11:21 | Consultation ---
History of Present Illness Consult date: 12/17/18 History of present illness: This 73-year-old patient is in his since 2006. Patient had a cardiac catheterization in 2006 and was noted to have mild coronary artery disease. Patient had repeat cardiac catheterization in 2012 by . He had a non- obstructive coronary disease. This revealed a patent stent in the mid left anterior descending artery. Patient was noted to have osteal 30% lesion of diagonal 2. Circumflex revealed a 20-30% lesion in the obtuse marginal branch. Posterior left ventricular branch of RCA was noted to have 100% proximal lesion. Patient was admitted to [facility] on November 14 2018 with TIA. Patient had loop recorder implanted and discharged. Patient CAT scan and MRI and [facility] which was negative. Patient was in the hospital for 6 days. Patient came with chest pain and was noted to have pneumonia on the right lower lobe. Patient is known to have diabetes mellitus for more than 10 years, hypertension and hyperlipidemia. Past History Past Medical History: diabetes, hypertension, hyperlipidemia, stroke Past Surgical History: PTCA Social history: denies: smoking Medications and Allergies Allergies Allergy/AdvReac Type Severity Reaction Status Date / Time No Known Allergies Allergy Unverified 12/16/18 13:29 Home Medications Medication Instructions Recorded Confirmed Last Taken Type Chlorthalidone [Thalitone] 25 mg PO DAILY 12/16/18 12/16/18 Unknown History Insulin Aspart [Novolog] 14 - 16 unit SQ AC 12/16/18 12/16/18 Unknown History Insulin Glargine [Lantus] 50 unit SUB-Q QHS 12/16/18 12/16/18 Unknown History Losartan [Cozaar] 100 mg PO DAILY 12/16/18 12/16/18 Unknown History Metoprolol [Lopressor TAB] 50 mg PO BID 12/16/18 12/16/18 Unknown History Metoprolol [Lopressor] 100 mg PO BID 12/16/18 12/16/18 Unknown History Multivitamin with Iron [Children's 1 each PO DAILY 12/16/18 12/16/18 Unknown History Vitamins with Iron] Oxybutynin Chloride [Ditropan Xl] 20 mg PO DAILY 12/16/18 12/16/18 Unknown History amLODIPine [Norvasc] 10 mg PO DAILY 12/16/18 12/16/18 Unknown History metFORMIN [Glucophage] 500 mg PO BID 12/16/18 12/16/18 Unknown History Active Meds: Active Medications Amlodipine Besylate (Norvasc) 10 mg PO DAILY [facility] Last Admin: 12/17/18 10:25 Dose: 10 mg Documented by: Ceftriaxone Sodium (Rocephin/Ns 2 Gm/100 Ml) 2 gm in 100 mls @ 200 mls/hr IV Q24HR [facility]; Protocol Last Admin: 12/17/18 10:40 Dose: 200 mls/hr Documented by: Azithromycin 500 mg/ Sodium (Chloride) 250 mls @ 250 mls/hr IV Q24HR [facility]; Protocol Last Admin: 12/17/18 10:39 Dose: 250 mls/hr Documented by: Vancomycin HCl 1,500 mg/ (Sodium Chloride) 530 mls @ 333.333 mls/hr IV Q24H [facility] Insulin Glargine (Lantus) 50 units SUB-Q QHS [facility] Last Admin: 12/16/18 22:07 Dose: 50 units Documented by: Insulin Human Lispro (Humalog) 0 unit SUB-Q ACHS [facility]; Protocol Last Admin: 12/17/18 10:32 Dose: Not Given Documented by: Insulin Human Lispro (Humalog) 14 unit SUB-Q AC [facility] Last Admin: 12/17/18 10:32 Dose: 14 unit Documented by: Losartan Potassium (Cozaar) 100 mg PO DAILY [facility] Last Admin: 12/17/18 10:26 Dose: 100 mg Documented by: Metformin HCl (Glucophage) 500 mg PO BID [facility] Last Admin: 12/17/18 10:27 Dose: 500 mg Documented by: Metoprolol Tartrate (Lopressor) 100 mg PO BID [facility] Last Admin: 12/17/18 10:27 Dose: 100 mg Documented by: Multivitamins/Minerals (Theragran-M Tab) 1 each PO QDAY [facility] Last Admin: 12/17/18 10:27 Dose: 1 each Documented by: Oxybutynin Chloride (Ditropan Xl) 20 mg PO QDAY [facility] Last Admin: 12/17/18 10:31 Dose: 20 mg Documented by: Review of Systems All systems: negative (sa mentioned in the history of PI) Physical Examination Vital Signs Temp Pulse Resp BP Pulse Ox 99.2 F 88 18 129/63 100 12/16/18 13:23 12/16/18 13:23 12/16/18 13:23 12/16/18 13:23 12/16/18 13:23 General appearance: no acute distress, well-nourished, obese HEENT: Positive: PERRL. Negative: Jaundice Results 12/16/18 13:19 12/17/18 09:55 Cardiac Enzymes 12/16/18 Range/Units 13:19 AST 16 (5-40) units/L Lipids 12/17/18 Range/Units 09:55 Triglycerides 67 (2-149) mg/dL Cholesterol 101 (50-199) mg/dL HDL Cholesterol 48 (40-59) mg/dL Cholesterol/HDL Ratio 2.10 % CBC 12/16/18 Range/Units 13:19 WBC 16.0 H (4.5-11.0) K/mm3 RBC 5.61 H (3.65-5.03) M/mm3 Hgb 16.1 H (11.8-15.2) gm/dl Hct 49.7 H (35.5-45.6) % Plt Count 202 (140-440) K/mm3 Comprehensive Metabolic Panel 12/16/18 12/17/18 Range/Units 13:19 09:55 Sodium 138 141 (137-145) mmol/L Potassium 3.7 3.9 (3.6-5.0) mmol/L Chloride 98.9 101.2 (98-107) mmol/L Carbon Dioxide 24 29 (22-30) mmol/L BUN 24 H 23 H (9-20) mg/dL Creatinine 1.6 H 1.3 (0.8-1.5) mg/dL Glucose 287 H 152 H (75-100) mg/dL Calcium 10.6 H 10.7 H (8.4-10.2) mg/dL AST 16 (5-40) units/L ALT 13 (7-56) units/L Alkaline Phosphatase 89 (35-129) units/L Total Protein 6.7 (6.3-8.2) g/dL Albumin 3.8 L (3.9-5) g/dL EKG interpretations - EKG Sinus rhythms and dysrhythmias: sinus rhythm (WNL) Assessment and Plan Chest pain. R/O CAD. Hx of PTCA LAD. RLL pneumonia. TIA. Has Loop recorder. DM2. Hypaertension. DM2. Old PA Plan As ordered by Hospitalist MPI is done . Results to follow.
--- NOTE | 2018-12-17 12:08 | Treadmill Report ---
MYOCARDIAL PERFUSION IMAGING STUDIES Resting images study revealed diminished radioisotope activity in the inferior wall area. Rest of the myocardium is perfused well. On post-Lexiscan, again there was diminished radioisotope activity in the inferior wall region. Gated scan revealed ejection fraction of 53%. There is no evidence of segmental wall motion abnormality. IMPRESSION: 1. This test is negative for ischemia. 2. Probable inferior wall scar or diaphragmatic artifact. JOB# [id number] SHERRI/NTS
[2018-12-17] MEDS ORDERED: PROCARDIA XL PO SCH (15:00)
[2018-12-17] MEDS ORDERED: TESSALON PERLES PO ONE (18:16)
--- NOTE | 2018-12-17 18:27 | Event Note ---
Date: 12/17/18 Stress test is negative, patient has community-acquired pneumonia Short of breath and congested with severe cough, will continue IV antibiotics Follow cultures, possible discharge in 1-2 days if stable
[2018-12-17] MEDS ORDERED: LASIX IV ONE (19:00)
[2018-12-17] MEDS: TESSALON PERLES PO SCH (21:28)
[2018-12-17] MEDS: VANCOMYCIN 1,500 MG in NACL 0.9% 500 ML 500 ML IV SCH (21:28)
[2018-12-17] MEDS: LANTUS SUB-Q SCH (21:29)
[2018-12-17] MEDS ORDERED: COREG PO SCH (22:00)
[2018-12-18 05:20] LABS: BUN/Creatinine Ratio 18; Blood Urea Nitrogen 20 mg/dL (9-20); Calcium 10.3 mg/dL (8.4-10.2); Hemolysis Index 20
[2018-12-18] MEDS: TESSALON PERLES PO SCH ×3 (06:06→22:23)
[2018-12-18] MEDS: HumaLOG SUB-Q SCH ×7 (08:08→23:01)
--- NOTE | 2018-12-18 09:37 | Progress Note ---
Assessment and Plan The patient is stable from a cardiac standpoint. Will discontinue AV daniel blocking agents and add hydralazine for BP optimization. Recommend outpatient follow-up with Dr. Patel (EP) in our office for further evaluation of intermittent Wenckebach block as well as a follow-up visit with Dr. Salguero within 7-10 days -- call [phone] for appointments. Also recommend outpatient evaluation for sleep apnea. The patient has been seen in conjunction with Dr. Collier, who agrees with the assessment and plan. - Patient Problems (1) Atypical chest pain Current Visit: Yes Status: Acute (2) Heart block AV second degree Current Visit: Yes Status: Acute (3) Heart block AV first degree Current Visit: Yes Status: Chronic (4) Diabetes Current Visit: Yes Status: Chronic (5) CAP (community acquired pneumonia) Current Visit: Yes Status: Acute Qualifiers: Laterality: right Lung location: lower lobe of lung Qualified Code(s): J18.1 - Lobar pneumonia, unspecified organism (6) Renal insufficiency Current Visit: Yes Status: Acute (7) HTN (hypertension) Current Visit: Yes Status: Chronic Qualifiers: Hypertension type: essential hypertension Qualified Code(s): I10 - Essential (primary) hypertension Subjective Date of service: 12/18/18 Interval history: The patient is sitting up in bed in NAD, eating breakfast. He has no complaints. Intermittent Wenckebach block noted on telemetry overnight. Currently in SR with a first-degree block. Lexiscan stress test negative with fixed defect noted. Creatinine improved to 1.1 from initial 1.6. Objective Last Vital Signs Temp 98.4 F 12/18/18 08:00 Pulse 74 12/18/18 08:00 Resp 20 12/18/18 08:00 BP 142/72 12/18/18 08:00 Pulse Ox 98 12/18/18 08:00 - Physical Examination General: No Apparent Distress HEENT: Positive: PERRL. Negative: Jaundice Neck: Positive: neck supple Cardiac: Positive: Reg Rate and Rhythm Lungs: Positive: Normal Exam Neuro: Positive: Grossly Intact Abdomen: Positive: Unremarkable /Rectal: Other (deferred) Skin: Positive: Clear Musculoskeletal: No Pain Extremities: Present: normal - Labs and Meds Lipids 12/17/18 Range/Units 09:55 Triglycerides 67 (2-149) mg/dL Cholesterol 101 (50-199) mg/dL HDL Cholesterol 48 (40-59) mg/dL Cholesterol/HDL Ratio 2.10 % Comprehensive Metabolic Panel 12/17/18 12/18/18 Range/Units 09:55 04:19 Sodium 141 139 (137-145) mmol/L Potassium 3.9 3.3 L (3.6-5.0) mmol/L Chloride 101.2 99.8 (98-107) mmol/L Carbon Dioxide 29 28 (22-30) mmol/L BUN 23 H 20 (9-20) mg/dL Creatinine 1.3 1.1 (0.8-1.5) mg/dL Glucose 152 H 103 H (75-100) mg/dL Calcium 10.7 H 10.3 H (8.4-10.2) mg/dL - Imaging and Cardiology EKG: report reviewed (NSR 85/min) Nuclear stress test: report reviewed (12/17/18: Negative for ischemia and infarct, fixed defect) Echo: report reviewed (2017: EF 45-50%, moderate LVH, grade 1 diastolic dy sfunction, mild NE, RV mildly dilated ) - EKG Sinus rhythms and dysrhythmias: sinus rhythm (WNL)
[2018-12-18] MEDS: ROCEPHIN/NS 2 GM/100 ML 2 GM/100 ML BAG IV SCH (09:53)
[2018-12-18] MEDS: GLUCOPHAGE PO SCH ×2 (09:53→22:24)
[2018-12-18] MEDS: DITROPAN XL PO SCH (09:53)
[2018-12-18] MEDS: THERAGRAN-M Tab PO SCH (09:53)
[2018-12-18] MEDS: ZITHROMAX 500 MG in NACL 0.9% 250ML 250 ML IV SCH (09:53)
[2018-12-18] MEDS: COZAAR PO SCH (09:53)
[2018-12-18] MEDS ORDERED: K-DUR PO ONE (11:00)
--- NOTE | 2018-12-18 11:42 | Progress Note ---
Assessment and Plan Assessment and plan: CXR:Right lung pneumonia. Borderline cardiomegaly. Chest CTA: 1. No CT evidence for pulmonary embolism. 2. Multifocal right pneumonia. 3. Additional findings as above. -- CAP (community acquired pneumonia) Current Visit: Yes Status: Acute IV Abx Rocephin and Zithromax and IV fluids , follow cultures Oxygen titrate O2 sats to more than 90% --Chest pain/angina Current Visit: Yes Status: Acute s/p stress test, pending report Cardiology evaluation noted and appreciated -- SHAMIR (acute kidney injury) Current Visit: Yes Status: Acute Probably secondary to vasomotor nephropathy vs Chlorthalidone, medication stopped Renal function improved, avoid nephrotoxins -- IDDM (insulin dependent diabetes mellitus) Current Visit: Yes Status: Chronic. Accu-Cheks sliding scale coverage and ADA diet Cont home insulin and coverage Check A1c -- HTN (hypertension) Current Visit: Yes Status: Chronic Cont antihypertensives, when necessary medications --OAB (overactive bladder) Current Visit: Yes Status: Chronic COnt ditropan -- DVT prophylaxis Current Visit: Yes Status: Acute On Lovenox and GI prophylaxis Disposition; follow stress test, continue current antibiotics Possible discharge in 1-2 days if stable History Interval history: Patient seen and examined medical records reviewed Patient feels better ambulatory in the room Denies chest pain or shortness of breath Vital signs noted Patient's stress test was negative yesterday Receiving IV antibiotics for his pneumonia Hospitalist Physical - Constitutional Vitals: Temp Pulse Resp BP Pulse Ox 98.4 F 74 20 142/72 98 12/18/18 08:00 12/18/18 11:07 12/18/18 11:07 12/18/18 08:00 12/18/18 11:07 General appearance: Present: no acute distress, well-nourished, obese - EENT Eyes: Present: PERRL, EOM intact - Neck Neck: Present: supple, normal ROM - Respiratory Respiratory effort: normal Respiratory: right: rhonchi, bilateral: diminished, negative: rales, wheezing - Cardiovascular Rhythm: regular Heart Sounds: Present: S1 & S2 - Extremities Extremities: no ischemia, No edema - Abdominal General gastrointestinal: soft, non-tender, non-distended, normal bowel sounds - Integumentary Integumentary: Present: clear, warm - Psychiatric Psychiatric: appropriate mood/affect, cooperative - Neurologic Neurologic: CNII-XII intact, moves all extremities Results - Labs CBC & Chem 7: 12/16/18 13:19 12/18/18 04:19 Labs: Laboratory Last Values WBC 16.0 K/mm3 (4.5-11.0) H 12/16/18 13:19 RBC 5.61 M/mm3 (3.65-5.03) H 12/16/18 13:19 Hgb 16.1 gm/dl (11.8-15.2) H 12/16/18 13:19 Hct 49.7 % (35.5-45.6) H 12/16/18 13:19 MCV 89 fl (84-94) 12/16/18 13:19 MCH 29 pg (28-32) 12/16/18 13:19 MCHC 32 % (32-34) 12/16/18 13:19 RDW 14.5 % (13.2-15.2) 12/16/18 13:19 Plt Count 202 K/mm3 (140-440) 12/16/18 13:19 Add Manual Diff Complete 12/16/18 13:19 Total Counted 100 12/16/18 13:19 Seg Neutrophils % Traffic Sergeant 12/16/18 13:19 Seg Neuts % (Manual) 98.0 % (40.0-70.0) H 12/16/18 13:19 0 % 12/16/18 13:19 2.0 % (13.4-35.0) L 12/16/18 13:19 Reactive Lymphs % (Man) 0 % 12/16/18 13:19 0 % (0.0-7.3) 12/16/18 13:19 0 % (0.0-4.3) 12/16/18 13:19 0 % (0.0-1.8) 12/16/18 13:19 0 % 12/16/18 13:19 0 % 12/16/18 13:19 0 % 12/16/18 13:19 0 % 12/16/18 13:19 Nucleated RBC % Not Reportable 12/16/18 13:19 Seg Neutrophils # Man 15.7 K/mm3 (1.8-7.7) H 12/16/18 13:19 Band Neutrophils # 0.0 K/mm3 12/16/18 13:19 0.3 K/mm3 (1.2-5.4) L 12/16/18 13:19 Abs React Lymphs (Man) 0.0 K/mm3 12/16/18 13:19 0.0 K/mm3 (0.0-0.8) 12/16/18 13:19 0.0 K/mm3 (0.0-0.4) 12/16/18 13:19 0.0 K/mm3 (0.0-0.1) 12/16/18 13:19 0.0 K/mm3 12/16/18 13:19 0.0 K/mm3 12/16/18 13:19 0.0 K/mm3 12/16/18 13:19 Blast Cells # 0.0 K/mm3 12/16/18 13:19 WBC Morphology Not Reportable 12/16/18 13:19 Hypersegmented Neuts Not Reportable 12/16/18 13:19 Hyposegmented Neuts Not Reportable 12/16/18 13:19 Hypogranular Neuts Not Reportable 12/16/18 13:19 Not Reportable 12/16/18 13:19 Not Reportable 12/16/18 13:19 Not Reportable 12/16/18 13:19 Not Reportable 12/16/18 13:19 Not Reportable 12/16/18 13:19 Not Reportable 12/16/18 13:19 Consistent w auto 12/16/18 13:19 Not Reportable 12/16/18 13:19 Plt Clumps, EDTA Not Reportable 12/16/18 13:19 Not Reportable 12/16/18 13:19 Not Reportable 12/16/18 13:19 Not Reportable 12/16/18 13:19 Plt Morphology Comment Not Reportable 12/16/18 13:19 RBC Morphology Not Reportable 12/16/18 13:19 Dimorphic RBCs Not Reportable 12/16/18 13:19 Not Reportable 12/16/18 13:19 Not Reportable 12/16/18 13:19 Not Reportable 12/16/18 13:19 Few 12/16/18 13:19 Not Reportable 12/16/18 13:19 Not Reportable 12/16/18 13:19 Not Reportable 12/16/18 13:19 Not Reportable 12/16/18 13:19 Not Reportable 12/16/18 13:19 Not Reportable 12/16/18 13:19 Not Reportable 12/16/18 13:19 Not Reportable 12/16/18 13:19 Not Reportable 12/16/18 13:19 Not Reportable 12/16/18 13:19 Not Reportable 12/16/18 13:19 Not Reportable 12/16/18 13:19 Not Reportable 12/16/18 13:19 Not Reportable 12/16/18 13:19 Not Reportable 12/16/18 13:19 Acanthocytes (Spur) Not Reportable 12/16/18 13:19 Rouleaux Not Reportable 12/16/18 13:19 Not Reportable 12/16/18 13:19 Not Reportable 12/16/18 13:19 Not Reportable 12/16/18 13:19 Not Reportable 12/16/18 13:19 Hem Pathologist Commnt No 12/16/18 13:19 Sodium 139 mmol/L (137-145) 12/18/18 04:19 Potassium 3.3 mmol/L (3.6-5.0) L 12/18/18 04:19 Chloride 99.8 mmol/L (98-107) 12/18/18 04:19 Carbon Dioxide 28 mmol/L (22-30) 12/18/18 04:19 15 mmol/L 12/18/18 04:19 BUN 20 mg/dL (9-20) 12/18/18 04:19 1.1 mg/dL (0.8-1.5) 12/18/18 04:19 Estimated GFR > 60 ml/min 12/18/18 04:19 18 % 12/18/18 04:19 Glucose 103 mg/dL (75-100) H 12/18/18 04:19 POC Glucose 88 (70-105) 12/18/18 08:05 Calcium 10.3 mg/dL (8.4-10.2) H 12/18/18 04:19 0.50 mg/dL (0.1-1.2) 12/16/18 13:19 AST 16 units/L (5-40) 12/16/18 13:19 ALT 13 units/L (7-56) 12/16/18 13:19 89 units/L (35-129) 12/16/18 13: 0.013 ng/mL (0.00-0.029) 12/17/18 12:57 6.7 g/dL (6.3-8.2) 12/16/18 13:19 3.8 g/dL (3.9-5) L 12/16/18 13:19 1.3 % 12/16/18 13:19 Triglycerides 67 mg/dL (2-149) 12/17/18 09:55 Cholesterol 101 mg/dL (50-199) 12/17/18 09:55 51 mg/dL (50-130) 12/17/18 09:55 48 mg/dL (40-59) 12/17/18 09:55 2.10 % 12/17/18 09:55 Yellow (Yellow) 12/16/18 Unknown Clear (Clear) 12/16/18 Unknown 6.0 (5.0-7.0) 12/16/18 Unknown Ur Specific [place] 1.041 (1.003-1.030) H 12/16/18 Unknown >500 mg/dL (Negative) 12/16/18 Unknown Neg mg/dL (Negative) 12/16/18 Unknown Neg mg/dL (Negative) 12/16/18 Unknown Neg (Negative) 12/16/18 Unknown Neg (Negative) 12/16/18 Unknown Neg (Negative) 12/16/18 Unknown < 2.0 mg/dL (<2.0) 12/16/18 Unknown Ur Leukocyte Esterase Neg (Negative) 12/16/18 Unknown 2.0 /HPF (0.0-6.0) 12/16/18 Unknown 3.0 /HPF (0.0-6.0) 12/16/18 Unknown U Epithel Cells (Auto) 1.0 /HPF (0-13.0) 12/16/18 Unknown Few /HPF 12/16/18 Unknown Presumptive negative 12/16/18 Unknown Presumptive negative 12/16/18 Unknown Ur Barbiturates Screen Presumptive negative 12/16/18 Unknown Ur Phencyclidine Scrn Presumptive negative 12/16/18 Unknown Ur Amphetamines Screen Presumptive negative 12/16/18 Unknown U Benzodiazepines Scrn Presumptive negative 12/16/18 Unknown Presumptive negative 12/16/18 Unknown U Marijuana (THC) Screen Presumptive negative 12/16/18 Unknown Disclamer 12/16/18 Unknown Active Medications - Current Medications Current Medications: Generic Name Dose Route Start Last Admin Trade Name Malorie PRN Reason Stop Dose Admin Benzonatate 100 mg 12/17/18 22:00 12/18/18 06:06 Tessalon Perles PO 100 mg Q8HR CAROL Administration Hydralazine HCl 25 mg 12/18/18 14:00 Apresoline PO Q8HR CAROL Ceftriaxone Sodium 2 gm in 100 mls @ 200 mls/hr 12/16/18 19:00 12/18/18 09:53 Rocephin/Ns 2 Gm/100 Ml IV 200 mls/hr Q24HR CAROL Administration Protocol Azithromycin 500 mg/ Sodium 250 mls @ 250 mls/hr 12/16/18 19:00 12/18/18 09:53 Chloride IV 250 mls/hr Q24HR CAROL Administration Protocol Vancomycin HCl 1,500 mg/ 530 mls @ 333.333 mls/hr 12/17/18 20:00 12/17/18 21:28 Sodium Chloride IV 333.333 mls/hr Q24H CAROL Administration Insulin Glargine 50 units 12/16/18 22:00 12/17/18 21:29 Lantus SUB-Q 50 units QHS CAROL Administration Insulin Human Lispro 0 unit 12/16/18 22:00 12/18/18 08:08 Humalog SUB-Q Not Given ACHS [facility] Protocol Insulin Human Lispro 14 unit 12/17/18 07:30 12/18/18 08:08 Humalog SUB-Q Not Given AC [facility] Losartan Potassium 100 mg 12/16/18 19:30 12/18/18 09:53 Cozaar PO 100 mg DAILY CAROL Administration Metformin HCl 500 mg 12/16/18 22:00 12/18/18 09:53 Glucophage PO 500 mg BID CAROL Administration Multivitamins/Minerals 1 each 12/17/18 10:00 12/18/18 09:53 Theragran-M Tab PO 1 each QDAY CAROL Administration Oxybutynin Chloride 20 mg 12/17/18 10:00 12/18/18 09:53 Ditropan Xl PO 20 mg QDAY CAROL Administration
[2018-12-18] MEDS: APRESOLINE PO SCH ×2 (14:12→22:17)
[2018-12-18] MEDS: VANCOMYCIN 1,500 MG in NACL 0.9% 500 ML 500 ML IV SCH (20:30)
[2018-12-18] MEDS: LANTUS SUB-Q SCH (22:28)
[2018-12-19] MEDS: TESSALON PERLES PO SCH ×2 (06:15→14:48)
[2018-12-19] MEDS: APRESOLINE PO SCH ×2 (06:21→14:48)
[2018-12-19 06:56] LABS: BUN/Creatinine Ratio 17; Blood Urea Nitrogen 19 mg/dL (9-20); Calcium 10.4 mg/dL (8.4-10.2); Hemolysis Index 21
[2018-12-19] MEDS: HumaLOG SUB-Q SCH ×6 (08:02→17:30)
--- NOTE | 2018-12-19 08:22 | XRay Report ---
CHEST 1 VIEW INDICATION: f/u pneumonia. COMPARISON: 12/16/2018 FINDINGS: Support devices: None. Heart: Within normal limits. Pulmonary vasculature: Normal. Lungs/Pleura: Patchy right basal and right upper lobe airspace disease is unchanged compared to the p revious exam. The left lung is clear. Additional findings: None. IMPRESSION: 1. Change in right upper lobe and right basal pneumonia. Signer Name: Bar Sousa MD Signed: 12/19/2018 8:18 AM Workstation Name: [id number]
[2018-12-19] MEDS ORDERED: MAGNESIUM SULFATE 2GM/50ML 2 GM/50 ML BAG IV NR (09:00)
[2018-12-19] MEDS ORDERED: K-DUR PO NR (09:00)
[2018-12-19 09:08] LABS: Basophils # (Auto) 0.1 K/mm3 (0.0-0.1); Basophils % (Auto) 0.7 % (0.0-1.8); Eosinophils # (Auto) 0.4 K/mm3 (0.0-0.4); Hematocrit 44.9 % (35.5-45.6); Hemoglobin 14.6 gm/dl (11.8-15.2); Lymphocytes # (Auto) 1.3 K/mm3 (1.2-5.4); Lymphocytes % (Auto) 15.9 % (13.4-35.0); Mean Corpuscular HGB Conc 33 % (32-34); Mean Corpuscular Volume 88 fl (84-94); Monocytes # (Auto) 0.5 K/mm3 (0.0-0.8); Platelet Count 189 K/mm3 (140-440); Red Blood Count 5.12 M/mm3 (3.65-5.03); Red Cell Distribution Width 14.8 % (13.2-15.2)
[2018-12-19] MEDS: DITROPAN XL PO SCH (09:41)
[2018-12-19] MEDS: THERAGRAN-M Tab PO SCH (09:41)
[2018-12-19] MEDS: GLUCOPHAGE PO SCH (09:42)
[2018-12-19] MEDS: COZAAR PO SCH (09:43)
--- NOTE | 2018-12-19 10:18 | Progress Note ---
Assessment and Plan Assessment and plan: CXR:Right lung pneumonia. Borderline cardiomegaly. Chest CTA: 1. No CT evidence for pulmonary embolism. 2. Multifocal right pneumonia. 3. Additional findings as above. -- CAP (community acquired pneumonia) Current Visit: Yes Status: Acute IV Abx Rocephin and Zithromax and IV fluids , follow cultures Oxygen titrate O2 sats to more than 90% --Sepsis secondary to community-acquired pneumonia Continue current antibiotics follow cultures --Chest pain/angina Current Visit: Yes Status: Acute s/p stress test, pending report Cardiology evaluation noted and appreciated. -- SHAMIR (acute kidney injury) Current Visit: Yes Status: Acute Probably secondary to vasomotor nephropathy vs Chlorthalidone, medication stopped Renal function improved, avoid nephrotoxins -- IDDM (insulin dependent diabetes mellitus) Current Visit: Yes Status: Chronic. Accu-Cheks sliding scale coverage and ADA diet Cont home insulin and coverage Check A1c -- HTN (hypertension) Current Visit: Yes Status: Chronic Cont antihypertensives, when necessary medications --OAB (overactive bladder) Current Visit: Yes Status: Chronic COnt ditropan -- DVT prophylaxis Current Visit: Yes Status: Acute On Lovenox and GI prophylaxis Hospitalist Physical - Constitutional Vitals: Temp Pulse Resp BP Pulse Ox 98.1 F 73 18 134/61 97 12/19/18 07:20 12/19/18 09:43 12/19/18 07:20 12/19/18 09:43 12/19/18 08:21 General appearance: Present: no acute distress, well-nourished, obese Results - Labs CBC & Chem 7: 12/19/18 08:50 12/19/18 05:31 Labs: Laboratory Last Values WBC 8.0 K/mm3 (4.5-11.0) 12/19/18 08:50 RBC 5.12 M/mm3 (3.65-5.03) H 12/19/18 08:50 Hgb 14.6 gm/dl (11.8-15.2) 12/19/18 08:50 Hct 44.9 % (35.5-45.6) 12/19/18 08:50 MCV 88 fl (84-94) 12/19/18 08:50 MCH 29 pg (28-32) 12/19/18 08:50 MCHC 33 % (32-34) 12/19/18 08:50 RDW 14.8 % (13.2-15.2) 12/19/18 08:50 Plt Count 189 K/mm3 (140-440) 12/19/18 08:50 Lymph % (Auto) 15.9 % (13.4-35.0) 12/19/18 08:50 [place] % (Auto) 6.0 % (0.0-7.3) 12/19/18 08:50 Eos % (Auto) 5.0 % (0.0-4.3) H 12/19/18 08:50 Baso % (Auto) 0.7 % (0.0-1.8) 12/19/18 08:50 Lymph # 1.3 K/mm3 (1.2-5.4) 12/19/18 08:50 [place] # 0.5 K/mm3 (0.0-0.8) 12/19/18 08:50 Eos # 0.4 K/mm3 (0.0-0.4) 12/19/18 08:50 Baso # 0.1 K/mm3 (0.0-0.1) 12/19/18 08:50 Add Manual Diff Complete 12/16/18 13:19 Total Counted 100 12/16/18 13:19 Seg Neutrophils % 72.4 % (40.0-70.0) H 12/19/18 08:50 Seg Neuts % (Manual) 98.0 % (40.0-70.0) H 12/16/18 13:19 0 % 12/16/18 13:19 2.0 % (13.4-35.0) L 12/16/18 13:19 Reactive Lymphs % (Man) 0 % 12/16/18 13:19 0 % (0.0-7.3) 12/16/18 13:19 0 % (0.0-4.3) 12/16/18 13:19 0 % (0.0-1.8) 12/16/18 13:19 0 % 12/16/18 13:19 0 % 12/16/18 13:19 0 % 12/16/18 13:19 0 % 12/16/18 13:19 Nucleated RBC % Not Reportable 12/16/18 13:19 Seg Neutrophils # 5.8 K/mm3 (1.8-7.7) 12/19/18 08:50 Seg Neutrophils # Man 15.7 K/mm3 (1.8-7.7) H 12/16/18 13:19 Band Neutrophils # 0.0 K/mm3 12/16/18 13:19 0.3 K/mm3 (1.2-5.4) L 12/16/18 13:19 Abs React Lymphs (Man) 0.0 K/mm3 12/16/18 13:19 0.0 K/mm3 (0.0-0.8) 12/16/18 13:19 0.0 K/mm3 (0.0-0.4) 12/16/18 13:19 0.0 K/mm3 (0.0-0.1) 12/16/18 13:19 0.0 K/mm3 12/16/18 13:19 0.0 K/mm3 12/16/18 13:19 0.0 K/mm3 12/16/18 13:19 Blast Cells # 0.0 K/mm3 12/16/18 13:19 WBC Morphology Not Reportable 12/16/18 13:19 Hypersegmented Neuts Not Reportable 12/16/18 13:19 Hyposegmented Neuts Not Reportable 12/16/18 13:19 Hypogranular Neuts Not Reportable 12/16/18 13:19 Not Reportable 12/16/18 13:19 Not Reportable 12/16/18 13:19 Not Reportable 12/16/18 13:19 Not Reportable 12/16/18 13:19 Not Reportable 12/16/18 13:19 Not Reportable 12/16/18 13:19 Consistent w auto 12/16/18 13:19 Not Reportable 12/16/18 13:19 Plt Clumps, EDTA Not Reportable 12/16/18 13:19 Not Reportable 12/16/18 13:19 Not Reportable 12/16/18 13:19 Not Reportable 12/16/18 13:19 Plt Morphology Comment Not Reportable 12/16/18 13:19 RBC Morphology Not Reportable 12/16/18 13:19 Dimorphic RBCs Not Reportable 12/16/18 13:19 Not Reportable 12/16/18 13:19 Not Reportable 12/16/18 13:19 Not Reportable 12/16/18 13:19 Few 12/16/18 13:19 Not Reportable 12/16/18 13:19 Not Reportable 12/16/18 13:19 Not Reportable 12/16/18 13:19 Not Reportable 12/16/18 13:19 Not Reportable 12/16/18 13:19 Not Reportable 12/16/18 13:19 Not Reportable 12/16/18 13:19 Not Reportable 12/16/18 13:19 Not Reportable 12/16/18 13:19 Not Reportable 12/16/18 13:19 Not Reportable 12/16/18 13:19 Not Reportable 12/16/18 13:19 Not Reportable 12/16/18 13:19 Not Reportable 12/16/18 13:19 Not Reportable 12/16/18 13:19 Acanthocytes (Spur) Not Reportable 12/16/18 13:19 Rouleaux Not Reportable 12/16/18 13:19 Not Reportable 12/16/18 13:19 Not Reportable 12/16/18 13:19 Not Reportable 12/16/18 13:19 Not Reportable 12/16/18 13:19 Hem Pathologist Commnt No 12/16/18 13:19 Sodium 144 mmol/L (137-145) 12/19/18 05:31 Potassium 3.3 mmol/L (3.6-5.0) L 12/19/18 05:31 Chloride 103.5 mmol/L (98-107) 12/19/18 05:31 Carbon Dioxide 28 mmol/L (22-30) 12/19/18 05:31 16 mmol/L 12/19/18 05:31 BUN 19 mg/dL (9-20) 12/19/18 05:31 1.1 mg/dL (0.8-1.5) 12/19/18 05:31 Estimated GFR > 60 ml/min 12/19/18 05:31 17 % 12/19/18 05:31 Glucose 83 mg/dL (75-100) 12/19/18 05:31 POC Glucose 73 (70-105) 12/19/18 07:26 Calcium 10.4 mg/dL (8.4-10.2) H 12/19/18 05:31 Magnesium 1.50 mg/dL (1.7-2.3) L 12/19/18 05:31 0.50 mg/dL (0.1-1.2) 12/16/18 13:19 AST 16 units/L (5-40) 12/16/18 13:19 ALT 13 units/L (7-56) 12/16/18 13:19 89 units/L (35-129) 12/16/18 13:19 0.013 ng/mL (0.00-0.029) 12/17/18 12:57 6.7 g/dL (6.3-8.2) 12/16/18 13:19 3.8 g/dL (3.9-5) L 12/16/18 13:19 1.3 % 12/16/18 13:19 Triglycerides 67 mg/dL (2-149) 12/17/18 09:55 Cholesterol 101 mg/dL (50-199) 12/17/18 09:55 51 mg/dL (50-130) 12/17/18 09:55 48 mg/dL (40-59) 12/17/18 09:55 2.10 % 12/17/18 09:55 Yellow (Yellow) 12/16/18 Unknown Clear (Clear) 12/16/18 Unknown 6.0 (5.0-7.0) 12/16/18 Unknown Ur Specific [place] 1.041 (1.003-1.030) H 12/16/18 Unknown >500 mg/dL (Negative) 12/16/18 Unknown Neg mg/dL (Negative) 12/16/18 Unknown Neg mg/dL (Negative) 12/16/18 Unknown Neg (Negative) 12/16/18 Unknown Neg (Negative) 12/16/18 Unknown Neg (Negative) 12/16/18 Unknown < 2.0 mg/dL (<2.0) 12/16/18 Unknown Ur Leukocyte Esterase Neg (Negative) 12/16/18 Unknown 2.0 /HPF (0.0-6.0) 12/16/18 Unknown 3.0 /HPF (0.0-6.0) 12/16/18 Unknown U Epithel Cells (Auto) 1.0 /HPF (0-13.0) 12/16/18 Unknown Few /HPF 12/16/18 Unknown Presumptive negative 12/16/18 Unknown Presumptive negative 12/16/18 Unknown Ur Barbiturates Screen Presumptive negative 12/16/18 Unknown Ur Phencyclidine Scrn Presumptive negative 12/16/18 Unknown Ur Amphetamines Screen Presumptive negative 12/16/18 Unknown U Benzodiazepines Scrn Presumptive negative 12/16/18 Unknown Presumptive negative 12/16/18 Unknown U Marijuana (THC) Screen Presumptive negative 12/16/18 Unknown Disclamer 12/16/18 Unknown Active Medications - Current Medications Current Medications: Generic Name Dose Route Start Last Admin Trade Name Freq PRN Reason Stop Dose Admin Benzonatate 100 mg 12/17/18 22:00 12/19/18 06:15 Tessalon Perles PO 100 mg Q8HR CAROL Administration Enoxaparin Sodium 40 mg 12/19/18 22:00 Lovenox SUB-Q QDAY@2200 CAROL Hydralazine HCl 25 mg 12/18/18 14:00 12/19/18 06:21 Apresoline PO Not Given Q8HR CAROL Ceftriaxone Sodium 2 gm in 100 mls @ 200 mls/hr 12/16/18 19:00 12/18/18 09:53 Rocephin/Ns 2 Gm/100 Ml IV 200 mls/hr Q24HR CAROL Administration Protocol Azithromycin 500 mg/ Sodium 250 mls @ 250 mls/hr 12/16/18 19:00 12/18/18 09:53 Chloride IV 250 mls/hr Q24HR CAROL Administration Protocol Vancomycin HCl 1,500 mg/ 530 mls @ 333.333 mls/hr 12/17/18 20:00 12/18/18 20:30 Sodium Chloride IV 333.333 mls/hr Q24H CAROL Administration Magnesium Sulfate 2 gm in 50 mls @ 25 mls/hr 12/19/18 09:00 12/19/18 09:41 Magnesium Sulfate 2gm/50ml IV 12/19/18 11:00 25 mls/hr ONCE NR Administration Insulin Glargine 50 units 12/16/18 22:00 12/18/18 22:28 Lantus SUB-Q 50 units QHS CAROL Administration Insulin Human Lispro 0 unit 12/16/18 22:00 12/19/18 08:02 Humalog SUB-Q Not Given ACHS [facility] Protocol Insulin Human Lispro 14 unit 12/17/18 07:30 12/18/18 16:30 Humalog SUB-Q Not Given AC CAROL Losartan Potassium 100 mg 12/16/18 19:30 12/19/18 09:43 Cozaar PO 100 mg DAILY CAROL Administration Metformin HCl 500 mg 12/16/18 22:00 12/19/18 09:42 Glucophage PO 500 mg BID CAROL Administration Multivitamins/Minerals 1 each 12/17/18 10:00 12/19/18 09:41 Theragran-M Tab PO 1 each QDAY CAROL Administration Oxybutynin Chloride 20 mg 12/17/18 10:00 12/19/18 09:41 Ditropan Xl PO 20 mg QDAY CAROL Administration Potassium Chloride 40 meq 12/19/18 09:00 12/19/18 09:41 K-Dur PO 12/19/18 11:00 40 meq ONCE NR Administration
[2018-12-19] MEDS: ZITHROMAX 500 MG in NACL 0.9% 250ML 250 ML IV SCH (10:49)
[2018-12-19] MEDS: ROCEPHIN/NS 2 GM/100 ML 2 GM/100 ML BAG IV SCH (10:50)
--- NOTE | 2018-12-19 12:39 | Progress Note ---
Assessment and Plan Currently stable cardiac status. Unfortunately, telemetry was discontinued overnight and thus unable to determine if any bradyarrhythmias overnight. Will resume telemetry. Cont to avoid AV daniel blocking agents. Agree with recommendation for outpatient sleep study. Resume ASA 81 and statin in setting of CAD with PCI. PNA treatment per primary team. The patient has been seen in conjunction with Dr. Fowler who agrees with the assessment and plan of care. - Patient Problems (1) Atypical chest pain Current Visit: Yes Status: Resolved (2) CAP (community acquired pneumonia) Current Visit: Yes Status: Acute Qualifiers: Laterality: right Lung location: lower lobe of lung Qualified Code(s): J18.1 - Lobar pneumonia, unspecified organism (3) Heart block AV second degree Current Visit: Yes Status: Acute (4) Heart block AV first degree Current Visit: Yes Status: Chronic (5) History of TIA (transient ischemic attack) Current Visit: Yes Status: Chronic (6) History of loop recorder Current Visit: Yes Status: Chronic (7) CAD (coronary artery disease) Current Visit: Yes Status: Chronic (8) Stented coronary artery Current Visit: Yes Status: Chronic (9) HTN (hypertension) Current Visit: Yes Status: Chronic Qualifiers: Hypertension type: essential hypertension Qualified Code(s): I10 - Essential (primary) hypertension (10) Diabetes Current Visit: Yes Status: Chronic Subjective Date of service: 12/19/18 Principal diagnosis: PNA Interval history: pt resting in bed, no current cardiac complaints. at bedside. Objective Last Vital Signs Temp 98.1 F 12/19/18 07:20 Pulse 73 12/19/18 09:43 Resp 18 12/19/18 07:20 BP 134/61 12/19/18 09:43 Pulse Ox 97 12/19/18 08:21 - Physical Examination General: No Apparent Distress HEENT: Positive: PERRL. Negative: Jaundice Neck: Positive: neck supple Cardiac: Positive: Reg Rate and Rhythm, S1/S2 Lungs: Positive: Decreased Breath Sounds Neuro: Positive: Grossly Intact Abdomen: Positive: Unremarkable Skin: Positive: Clear Musculoskeletal: No Pain Extremities: Present: normal - Labs and Meds CBC 12/19/18 Range/Units 08:50 WBC 8.0 (4.5-11.0) K/mm3 RBC 5.12 H (3.65-5.03) M/mm3 Hgb 14.6 (11.8-15.2) gm/dl Hct 44.9 (35.5-45.6) % Plt Count 189 (140-440) K/mm3 Lymph # 1.3 (1.2-5.4) K/mm3 [place] # 0.5 (0.0-0.8) K/mm3 Eos # 0.4 (0.0-0.4) K/mm3 Baso # 0.1 (0.0-0.1) K/mm3 Comprehensive Metabolic Panel 12/19/18 Range/Units 05:31 Sodium 144 (137-145) mmol/L Potassium 3.3 L (3.6-5.0) mmol/L Chloride 103.5 (98-107) mmol/L Carbon Dioxide 28 (22-30) mmol/L BUN 19 (9-20) mg/dL Creatinine 1.1 (0.8-1.5) mg/dL Glucose 83 (75-100) mg/dL Calcium 10.4 H (8.4-10.2) mg/dL - Imaging and Cardiology EKG: report reviewed (NSR 85/min) Echo: report reviewed (2017: EF 45-50%, moderate LVH, grade 1 diastolic dysfunction, mild IL, RV mildly dilated ) - EKG Sinus rhythms and dysrhythmias: sinus rhythm (WNL)
[2018-12-19 13:58] VITALS: BP 140/74
[2018-12-19] MEDS ORDERED: BABY ASPIRIN PO SCH (14:00)
--- NOTE | 2018-12-19 15:39 | Discharge Summary ---
Providers - Providers Date of Admission: 12/16/18 15:35 Date of discharge: 12/19/18 Attending physician: COTY INGRAM 12/17/18 05:52 Consult to Physician [CONS] Routine Comment: aware of consult per Dr Mcarthur [facility] heart pt Consulting Provider: JIN MCARTHUR Physician Instructions: Reason For Exam: c/o chest pain, junctional rhythm Primary care physician: [facility] MD TRAVIS Hospitalization Condition: Stable Hospital course: CXR:Right lung pneumonia. Borderline cardiomegaly. Chest CTA: 1. No CT evidence for pulmonary embolism. 2. Multifocal right pneumonia. 3. Additional findings as above. -- CAP (community acquired pneumonia) Current Visit: Yes Status: Acute IV Abx Rocephin and Zithromax and IV fluids , follow cultures Oxygen titrate O2 sats to more than 90% --Sepsis secondary to community-acquired pneumonia Continue current antibiotics follow cultures --Chest pain/angina Current Visit: Yes Status: Acute s/p stress test, pending report Cardiology evaluation noted and appreciated. -- SHAMIR (acute kidney injury) Current Visit: Yes Status: Acute Probably secondary to vasomotor nephropathy vs Chlorthalidone, medication stopped Renal function improved, avoid nephrotoxins -- IDDM (insulin dependent diabetes mellitus) Current Visit: Yes Status: Chronic. Accu-Cheks sliding scale coverage and ADA diet Cont home insulin and coverage Check A1c -- HTN (hypertension) Current Visit: Yes Status: Chronic Cont antihypertensives, when necessary medications --OAB (overactive bladder) Current Visit: Yes Status: Chronic COnt ditropan -- DVT prophylaxis Current Visit: Yes Status: Acute On Lovenox and GI prophylaxis Disposition: DC-01 TO HOME OR SELFCARE Time spent for discharge: 32 min Core Measure Documentation - Palliative Care Palliative Care/ Comfort Measures: Not Applicable - Core Measures Any of the following diagnoses?: none Exam - Constitutional Vitals: Temp Pulse Resp BP Pulse Ox 97.8 F 87 20 140/74 95 12/19/18 13:32 12/19/18 14:48 12/19/18 13:32 12/19/18 14:48 12/19/18 13:32 Plan Activity: advance as tolerated, fall precautions Diet: diabetic Additional Instructions: Fall precautions. Advised to follow primary care physician, cardiology per schedule [facility] [Primary Care Provider] - 7 Days JIN MCARTHUR MD [Staff Physician] - 7 Days Prescriptions: hydrALAZINE [Apresoline TAB] 25 mg PO Q8HR #90 tablet Aspirin [Aspirin BABY CHEW TAB] 81 mg PO QDAY #30 tab.chew Losartan [Cozaar] 100 mg PO DAILY #30 tablet levoFLOXacin [Levaquin TAB] 500 mg PO QDAY #7 tablet AtorvaSTATin [Lipitor] 20 mg PO QHS #30 tablet Benzonatate [Tessalon Perles] 100 mg PO Q8HR #30 capsule
[2018-12-19] MEDS ORDERED: LOVENOX SUB-Q SCH (22:00)
== END 2018-12-19 18:40 | disposition home or self-care (01) | DRG 871 ==
LOC: ED 13:07 → 4A 15:35 → 2B-ACE 12-18 19:40
PROVIDERS: ADMIT Internal Medicine; ATTEND Internal Medicine
DX: A41.9 Sepsis, unspecified organism (principal); J18.1 Lobar pneumonia, unspecified organism; N17.0 Acute kidney failure with tubular necrosis; R07.89 Other chest pain; I10 Essential (primary) hypertension; N32.81 Overactive bladder; E11.9 Type 2 diabetes mellitus without complications; I44.1 Atrioventricular block, second degree; I25.10 Atherosclerotic heart disease of native coronary artery without angina pectoris; Z95.5 Presence of coronary angioplasty implant and graft; I25.2 Old myocardial infarction; Z79.82 Long term (current) use of aspirin; Z79.4 Long term (current) use of insulin; Z86.73 Personal history of transient ischemic attack (TIA), and cerebral infarction without residual deficits
CPT/HCPCS: 36415; 71045; 71275; 78452; 80048; 80053; 80061; 80307; 81001; 82962; 83735; 84484; 85007; 85025; 87040; 93005; 93010; 93017; 94760; 96374; G0378; A9502; J0456; J0692; J0696; J1815; J1940; J2785; J3370; J3475; J7030; J7040; J7050; Q9967

== ENCOUNTER 2019-02-03 19:20 | Emergency (ER) | payer MEDICARE, OTHER ==
[2019-02-03] MEDS ORDERED: ASPIRIN 325 MG TAB PO ONE (20:14)
[2019-02-03 20:39] LABS: Basophils # (Auto) 0.1 K/mm3 (0.0-0.1); Basophils % (Auto) 0.8 % (0.0-1.8); Eosinophils # (Auto) 0.2 K/mm3 (0.0-0.4); Eosinophils % (Auto) 2.1 % (0.0-4.3); Hematocrit 48.1 % (35.5-45.6); Hemoglobin 15.3 gm/dl (11.8-15.2); Lymphocytes # (Auto) 1.5 K/mm3 (1.2-5.4); Lymphocytes % (Auto) 20.3 % (13.4-35.0); Mean Corpuscular HGB Conc 32 % (32-34); Mean Corpuscular Volume 91 fl (84-94); Monocytes # (Auto) 0.7 K/mm3 (0.0-0.8); Monocytes % (Auto) 9.4 % (0.0-7.3); Platelet Count 172 K/mm3 (140-440); Red Cell Distribution Width 15.6 % (13.2-15.2)
[2019-02-03 20:55] LABS: Calcium 10.7 mg/dL (8.4-10.2)
--- NOTE | 2019-02-03 21:18 | XRay Report ---
CHEST 1 VIEW, 02/03/2019 8:47 PM CLINICAL INFORMATION/INDICATION: Chest pain COMPARISON: Chest radiograph, 12/19/2018 FINDINGS: SUPPORT DEVICES: cardiac monitor overlies the left chest. HEART: There is stable moderate enlargement of the cardiac silhouette. LUNGS/PLEURA: Pulmonary vascularity appears within normal limits. No focal airspace consolidation or significant pleural effusion is seen. ADDITIONAL FINDINGS: No additional acute findings. IMPRESSION: 1. Stable moderate enlargement of the cardiac silhouette. Signer Name: Nae Limon MD Signed: 02/03/2019 9:14 PM Workstation Name: [id number]
[2019-02-03] MEDS ORDERED: ASPIRIN 81 MG TAB CHEW PO ONE (23:58)
[2019-02-03] MEDS ORDERED: NITROGLYCERIN 0.4 MG TAB SUBL SL PRN (23:58)
--- NOTE | 2019-02-03 23:58 | Emergency Department Report ---
ED General Adult HPI - General Chief complaint: Arrhythmia/Palpitations Stated complaint: LOW BLOOD PRESSURE, HIGH PULSE RATE Time Seen by Provider: 02/03/19 22:00 Source: patient Mode of arrival: Ambulatory Limitations: No Limitations - History of Present Illness Initial comments: Patient presents to the emergency department with a chief complaint of chest tightness that started today. She denies any radiation of his chest pain and also denies any nausea or vomiting. Patient has a history of stents and is currently wearing a loop recorder. 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 -: Sudden Location: chest Radiation: non-radiation Severity scale (0 -10): 3 Quality: other (tightness) Consistency: constant Improves with: none Worsens with: none Associated Symptoms: denies other symptoms Treatments Prior to Arrival: none - Related Data Home Medications Medication Instructions Recorded Confirmed Last Taken Insulin Aspart [NovoLOG 100 14 - 16 unit SQ AC 12/16/18 12/16/18 Unknown UNITS/ML VIAL] Insulin Glargine [Lantus VIAL] 50 unit SUB-Q QHS 12/16/18 12/16/18 Unknown Multivitamin with Iron [Children's 1 each PO DAILY 12/16/18 12/16/18 Unknown Vitamins with Iron] Oxybutynin Chloride [Ditropan Xl] 20 mg PO DAILY 12/16/18 12/16/18 Unknown metFORMIN [Glucophage] 500 mg PO BID 12/16/18 12/16/18 Unknown Previous Rx's Medication Instructions Recorded Last Taken Type Aspirin [Aspirin BABY CHEW TAB] 81 mg PO QDAY #30 tab.chew 12/19/18 Unknown Rx AtorvaSTATin [Lipitor] 20 mg PO QHS #30 tablet 12/19/18 Unknown Rx Benzonatate [Tessalon Perles] 100 mg PO Q8HR #30 capsule 12/19/18 Unknown Rx Losartan [Cozaar] 100 mg PO DAILY #30 tablet 12/19/18 Unknown Rx hydrALAZINE [Apresoline TAB] 25 mg PO Q8HR #90 tablet 12/19/18 Unknown Rx levoFLOXacin [Levaquin TAB] 500 mg PO QDAY #7 tablet 12/19/18 Unknown Rx Allergies Allergy/AdvReac Type Severity Reaction Status Date / Time No Known Allergies Allergy Unverified 12/16/18 13:29 ED Review of Systems ROS: Stated complaint: LOW BLOOD PRESSURE, HIGH PULSE RATE Other details as noted in HPI Comment: All other systems reviewed and negative Constitutional: denies: chills, fever Eyes: denies: eye pain, eye discharge, vision change ENT: denies: ear pain, throat pain Respiratory: denies: cough, shortness of breath, wheezing Cardiovascular: chest pain. denies: palpitations Endocrine: no symptoms reported Gastrointestinal: denies: abdominal pain, nausea, diarrhea Genitourinary: denies: urgency, dysuria Musculoskeletal: denies: back pain, joint swelling, arthralgia Skin: denies: rash, lesions Neurological: denies: headache, weakness, paresthesias Psychiatric: denies: anxiety, depression Hematological/Lymphatic: denies: easy bleeding, easy bruising ED Past Medical Hx - Past Medical History Previous Medical History?: Yes Hx Hypertension: Yes Hx Heart Attack/AMI: Yes Hx Congestive Heart Failure: No Hx Diabetes: Yes Hx Asthma: No Hx COPD: No Additional medical history: heart monitor loop stent replacement - Surgical History Past Surgical History?: Yes Hx Coronary Stent: Yes Hx Pacemaker: No (loop monitor) Additional Surgical History: heart monitor loop stent replacement - Social History Smoking Status: Never Smoker Substance Use Type: None - Medications Home Medications: Home Medications Medication Instructions Recorded Confirmed Last Taken Type Insulin Aspart [NovoLOG 100 14 - 16 unit SQ AC 12/16/18 12/16/18 Unknown History UNITS/ML VIAL] Insulin Glargine [Lantus VIAL] 50 unit SUB-Q QHS 12/16/18 12/16/18 Unknown Histo ry Multivitamin with Iron [Children's 1 each PO DAILY 12/16/18 12/16/18 Unknown History Vitamins with Iron] Oxybutynin Chloride [Ditropan Xl] 20 mg PO DAILY 12/16/18 12/16/18 Unknown History metFORMIN [Glucophage] 500 mg PO BID 12/16/18 12/16/18 Unknown History Aspirin [Aspirin BABY CHEW TAB] 81 mg PO QDAY #30 tab.chew 12/19/18 Unknown Rx AtorvaSTATin [Lipitor] 20 mg PO QHS #30 tablet 12/19/18 Unknown Rx Benzonatate [Tessalon Perles] 100 mg PO Q8HR #30 capsule 12/19/18 Unknown Rx Losartan [Cozaar] 100 mg PO DAILY #30 tablet 12/19/18 Unknown Rx hydrALAZINE [Apresoline TAB] 25 mg PO Q8HR #90 tablet 12/19/18 Unknown Rx levoFLOXacin [Levaquin TAB] 500 mg PO QDAY #7 tablet 12/19/18 Unknown Rx ED Physical Exam - General Limitations: No Limitations General appearance: alert, in no apparent distress - Head Head exam: Present: atraumatic, normocephalic - Eye Eye exam: Present: normal appearance, PERRL, EOMI - ENT ENT exam: Present: mucous membranes moist - Neck Neck exam: Present: normal inspection - Respiratory Respiratory exam: Present: normal lung sounds bilaterally. Absent: respiratory distress - Cardiovascular Cardiovascular Exam: Present: regular rate, normal rhythm. Absent: systolic murmur, diastolic murmur, rubs, gallop - GI/Abdominal GI/Abdominal exam: Present: soft, normal bowel sounds. Absent: distended, tenderness - Rectal Rectal exam: Present: deferred - Extremities Exam Extremities exam: Present: normal inspection - Back Exam Back exam: Present: normal inspection - Neurological Exam Neurological exam: Present: alert, oriented X3, CN II-XII intact. Absent: motor sensory deficit - Psychiatric Psychiatric exam: Present: normal affect, normal mood - Skin Skin exam: Present: warm, dry, intact, normal color. Absent: rash ED Course Vital Signs 02/03/19 02/03/19 02/03/19 19:27 21:47 22:01 Temperature 97.9 F Pulse Rate 59 L 57 L 54 L Respiratory 20 14 15 Rate Blood Pressure 137/70 O2 Sat by Pulse 97 100 100 Oximetry 02/03/19 02/03/19 02/03/19 22:15 22:31 23:00 Temperature Pulse Rate 57 L 55 L 65 Respiratory 20 19 20 Rate Blood Pressure 142/80 150/105 O2 Sat by Pulse 100 99 99 Oximetry 02/03/19 02/04/19 23:31 00:01 Temperature Pulse Rate 57 L 54 L Respiratory 14 21 Rate Blood Pressure 154/112 168/83 O2 Sat by Pulse 98 100 Oximetry ED Medical Decision Making - Lab Data Result diagrams: 02/03/19 20:18 02/03/19 20:18 Lab Results 02/03/19 02/03/19 02/03/19 Range/Units 20:18 20:18 23:37 WBC 7.2 (4.5-11.0) K/mm3 RBC 5.30 H (3.65-5.03) M/mm3 Hgb 15.3 H (11.8-15.2) gm/dl Hct 48.1 H (35.5-45.6) % MCV 91 (84-94) fl MCH 29 (28-32) pg MCHC 32 (32-34) % RDW 15.6 H (13.2-15.2) % Plt Count 172 (140-440) K/mm3 Lymph % (Auto) 20.3 (13.4-35.0) % Cameron % (Auto) 9.4 H (0.0-7.3) % Eos % (Auto) 2.1 (0.0-4.3) % Baso % (Auto) 0.8 (0.0-1.8) % Lymph # 1.5 (1.2-5.4) K/mm3 Cameron # 0.7 (0.0-0.8) K/mm3 Eos # 0.2 (0.0-0.4) K/mm3 Baso # 0.1 (0.0-0.1) K/mm3 Seg Neutrophils % 67.4 (40.0-70.0) % Seg Neutrophils # 4.8 (1.8-7.7) K/mm3 Sodium 137 (137-145) mmol/L Potassium 4.7 (3.6-5.0) mmol/L Chloride 103.1 (98-107) mmol/L Carbon Dioxide 23 (22-30) mmol/L Anion Gap 16 mmol/L BUN 27 H (9-20) mg/dL Creatinine 1.5 (0.8-1.5) mg/dL Estimated GFR 55 ml/min BUN/Creatinine Ratio 18 % Glucose 207 H (75-100) mg/dL Calcium 10.7 H (8.4-10.2) mg/dL Troponin T 0.015 < 0.010 (0.00-0.029) ng/mL - EKG Data -: EKG Interpreted by Me EKG shows normal: sinus rhythm Rate: normal - EKG Data Interpretation: other (rbbb) - Radiology Data Radiology results: report reviewed - Medical Decision Making Patient also admission but he politely declined stating he had a negative stress test last month and will follow up with his repairer welding equipment next week Critical care attestation.: If time is entered above; I have spent that time in minutes in the direct care of this critically ill patient, excluding procedure time. ED Disposition Clinical Impression: Chest pain Disposition: - TO HOME OR SELFCARE Is pt being admited?: No Does the pt Need Aspirin: No Condition: Stable Instructions: Chest Pain (ED) Additional Instructions: return if worse Referrals: PRIMARY CARE, [Primary Care Provider] - 3-5 Days PUMA MCGARRY MD [Staff Physician] - 3-5 Days Time of Disposition: 00:58
[2019-02-04 01:09] VITALS: BP 160/84
== END 2019-02-04 01:23 | disposition home or self-care (01) ==
LOC: ED 19:20
DX: R07.89 Other chest pain (principal); I10 Essential (primary) hypertension; I25.2 Old myocardial infarction; E11.9 Type 2 diabetes mellitus without complications; Z95.5 Presence of coronary angioplasty implant and graft; Z79.899 Other long term (current) drug therapy
CPT/HCPCS: 36415; 71045; 80048; 84484; 85025; 93005; 93010